=== PATIENT | male | born 1970 | race African-American/Black ===

== ENCOUNTER 2024-05-20 11:39 | Outpatient (AMB) | payer MEDICARE, MEDICAID, SELFPAY ==
--- NOTE | 2024-05-20 12:09 | MHC.PC.OV ---
Vital Signs 05/20/24 12:12 BP 135/63 Blood Pressure Location Lt brachial Position Sitting Pulse 75 Pulse Source Pulse Oximeter Temp 98.8 F Temp Source Temporal Artery Scan Pulse Oximetry (%) 97 Oxygen Delivery Method Room Air Intake Visit Reasons: [facility] STORAGE ARCHITECT- Establish care Intake Note: Patient is here to establish care in the office. Curing Oven Tender Required: No Accompanied by: Spouse Followed by:: and daughter Allergies No Known Allergies Allergy (Verified 05/20/24 12:17) Medication List - Last Reconciled 05/20/24 by ALFREDO Hughes alcohol swabs (Alcohol Wipes) 1 pad topical QID apixaban 5 mg PO BID atorvastatin 80 mg PO BEDTIME bethanechol chloride 25 mg PO TID blood sugar diagnostic (FreeStyle Lite Strips) As directed blood-glucose meter (FreeStyle Lite Meter kit) As directed dextrose 40% (Glucose Gel) 15 grams PO Q15M PRN diaper,brief,adult,disposable As directed glucagon HCl (Glucagon (HCl) Emergency Kit) 1 mg subcut Q20M PRN insulin glargine (Lantus Solostar U-100 Insulin) 14 units subcut BEDTIME insulin lispro (Humalog KwikPen U-200 Insulin) 10 units subcut USEASDIRECTD ketoconazole 2% 1 appl topical 3XW lancets (FreeStyle Lancets) As directed lidocaine 5% 1 patch topical DAILY magnesium hydroxide (Milk of Magnesia) 30 mL PO DAILY PRN melatonin 6 mg (2 x 3 mg) PO BEDTIME 90 days metoprolol tartrate 50 mg PO QID polyethylene glycol 3350 17 grams PO DAILY sennosides (senna) 8.6 mg PO BEDTIME Tobacco use date assessed: 05/20/24 Dental Screening Dental Screen Date: 05/20/24 Did you have a dental visit in the last 12 months?: Yes Did you have a dental problem in the last 6 months where you did not have access to dental care?: No Was dental information given to patient?: Patient has dentist HPI HPI Comments History of Present Illness Details This is a 54-year-old male with a past medical history of multiple CVAs with residual right-sided weakness, aphasia, memory impairment atrial, fibrillation, hypertension, hyperlipidemia and type 2 diabetes presenting to establish care. He is accompanied by his daughter, Susan, and his who goes by Chikis. Medical records are not available to review. They signed a release today. The patient is mostly nonverbal. His daughter says he speaks selectively. His and daughter provide the history. Patient is wheelchair bound. Patient had a CVA in 2019 resulting in residual right-sided weakness, memory impairment, aphasia and dysphagia. He had a G-tube and was slowly advanced, and now he eats a normal diet. They say he eats quickly and they admit he coughs frequently when he eats. No choking events. He was hospitalized again at [facility] in early 2022 for ?multiple small strokes. ? He was then discharged to [facility] where he resided until he moved to [place], [place] in April of this year. He moved here to join his and daughter. They would like him to live at home. They have WIRE SETTER 70 hours per week. His daughter, Susan, serves as WIRE SETTER on Fridays and Saturdays. She manages his medications for the most part. Requests referral to local neurologist. Patient is a nonsmoker. He only drank alcohol occasionally prior to the strokes. He does not drink any alcohol now. They requests referral for home PT/OT in his new living environment. They say that he was diagnosed with atrial fibrillation when he was hospitalized once at [facility]. He saw a package yarns drying machine operator, but he was not following with a package yarns drying machine operator routinely. He was diagnosed with type 2 diabetes when he was hospitalized with a stroke in 2019. His morning blood sugars are between 110 and 130. Postprandial sugars are around 200. He had 1 high reading in the last few months of 300. He had no readings under 80. His meals are cooked at home now. He follows a healthy diet. He takes 10 units of Lantus nightly and 10 units of Humalog 3 times a day and at night though he does not eat a meal before bedtime. They need refills on supplies.Requests endocrinology referral and CGM. ROS: Unable to obtain ROS due to physical impairment. Physical exam: Constitutional: Alert, seated in wheelchair Head: Normocephalic. Neck: Supple, Full range of motion. No lymphadenopathy. Respiratory: Clear to auscultation. Cardiovascular: S1 S2 regular. II/ systolic murmur. Neurologic: Right sided weakness. Nonverbal at appointment. Skin: No rashes Extremities: Warm and well perfused. No clubbing, cyanosis or edema. [facility] Medical History (Updated 05/20/24 @ 21:00 by ALFREDO Hughes) Pure hypercholesterolemia Paroxysmal atrial fibrillation Type 2 diabetes mellitus with vascular disease History of multiple cerebrovascular accidents (CVAs) Aphasia Abnormal posture Dysphagia, oropharyngeal phase Muscle weakness (generalized) Paralysis of vocal cords and larynx, unspecified Dysphasia following cerebral infarction Hemiplegia and hemiparesis following cerebral infarction affecting right non-dominant side Afib Hypertension Metabolic encephalopathy Diabetes type 2, controlled Insomnia Supraventricular tachycardia Cerebral infarction due to unspecified occlusion or stenosis of other cerebral artery Encounter for nasogastric (NG) tube placement Stroke Surgical History (Updated 05/20/24 @ 13:12 by Francoise Virgen CMA) Gastrostomy status Family History (Updated 05/20/24 @ 13:13 by Francoise Virgen CMA) Other No pertinent family history Social History (Updated 05/20/24 @ 13:16 by Francoise Virgen CMA) Household Members: Spouse and Children Housing: House 75 years or older and lives alone: No Alcohol intake: never Patient Tobacco Use Status: Never used Tobacco e-Cigarette/Vaping Use: Never Used Advance Directives Date on File: 05/20/24 service: No Current occupational status: disabled Current occupational exposures/hazards: No Cognitive needs: Yes Hearing needs: No Vision needs: No Questionnaire PHQ-9 Over the last 2 weeks, how often have you been bothered by any of the following problems? 1. Little interest or pleasure in doing things: nearly every day 2. Feeling down, depressed, or hopeless: several days 3. Trouble falling or staying asleep, or sleeping too much: not at all 4. Feeling tired or having little energy: not at all 5. Poor appetite or overeating: more than half the days 6. Feeling bad about yourself - or that you are a failure or have let yourself or your family down: not at all 7. Trouble concentrating on things, such as reading the newspaper or watching television: not at all 8. Moving or speaking so slowly that other people could have noticed. Or the opposite - being so fidgety or restless that you have been moving around a lot more than usual: not at all 9. Thoughts that you would be better off or of hurting yourself in some way: not at all Total score: 6 Depression Screening Interpretation: Positive Depression Screening Done: Yes 82883 - PHQ-9 Billing: Yes Source: Developed by Drs. Bennie Nunez, Torri Cisneros, Les Sanches and colleagues, with an educational tish from [employer]. Thrive Questionnaire Date Thrive assessed: 05/20/24 I am a: Patient What is your living situation today?: I have a steady place to live Within the past 12 months, did the food you bought not last and you didn't have the money to get more?: Sometimes True Within the past 12 months, did you worry whether your food would run out before you got money to buy more?: Sometimes True Do you have trouble paying for medicines?: No Do you have trouble getting transportation to medical appointments?: Yes Do you have trouble paying your heating and electricity bill?: No Do you have trouble taking care of your child, family member or friend?: Yes Do you have trouble with day-to-day activities such as bathing, preparing meals, shopping, managing finances, etc.?: Yes Are you currently unemployed and looking for a job?: Yes Are you interested in more education?: Yes Please select the resources that you would like help with: Food, Transportation, Care for elder or disabled and Daily support Currently or been in a relationship where the following occur: No concerns reported THRIVE Score: 3 AUDIT C Alcohol Use Questionnaire (AUDIT-C) 1. How often do you have a drink containing alcohol?: Never 3. How often do you have six or more drinks on one occasion?: Never Total Score: 0 LIZZIE-7 AMB Questionnaire LIZZIE-7 Date LIZZIE - 7 assessed: 05/20/24 Source: Developed by Drs. Bennie Nunez, Torri Cisneros, Les Sanches and colleagues, with an educational tish from [employer]. LIZZIE-7 Assessment Billing LIZZIE-7 Assessment Tool: pt declined-do not bill Physical exam (Primary Care) Vital Signs: Last Vital Signs Temp 98.8 F 05/20/24 12:12 Pulse 75 05/20/24 12:12 BP 135/63 05/20/24 12:12 Pulse Ox 97 05/20/24 12:12 Oxygen Delivery Method Room Air 05/20/24 12:12 Tobacco/Smoking Status: Tobacco use Status Tobacco use date assessed 05/20/24 05/20/24 12:58 Patient Tobacco Use Status Never used Tobacco 05/20/24 13:16 e-Cigarette/Vaping Use Never Used 05/20/24 13:16 PHQ-9: PHQ-9 Score PHQ-9: Total score 6 05/20/24 16:39 Depression Screening Interpretation: Positive Thrive Assessment: Date of Thrive Assessment Date Thrive assessed 05/20/24 05/20/24 12:59 Currently or been in a relationship where the following occur: No concerns reported Assessment and Plan Assessment & Plan (1) History of multiple cerebrovascular accidents (CVAs): Code(s): Z86.73 - Personal history of transient ischemic attack (TIA), and cerebral infarction without residual deficits (2) Type 2 diabetes mellitus with vascular disease: Code(s): E11.59 - Type 2 diabetes mellitus with other circulatory complications (3) Paroxysmal atrial fibrillation: Code(s): I48.0 - Paroxysmal atrial fibrillation (4) Hemiplegia and hemiparesis following cerebral infarction affecting right non-dominant side: Code(s): I69.353 - Hemiplegia and hemiparesis following cerebral infarction affecting right non-dominant side (5) Pure hypercholesterolemia: Code(s): E78.00 - Pure hypercholesterolemia, unspecified (6) Hypertension: Code(s): I10 - Essential (primary) hypertension Qualifiers: Hypertension type: primary hypertension Qualified Code(s): I10 - Essential (primary) hypertension (7) Afib: Code(s): I48.91 - Unspecified atrial fibrillation Qualifiers: Atrial fibrillation type: unspecified Qualified Code(s): I48.91 - Unspecified atrial fibrillation (8) Dysphagia, oropharyngeal phase: Code(s): R13.12 - Dysphagia, oropharyngeal phase Plan The patient will have labwork done today. Referred to [facility] for home PT/OT. Patient is homebound/wheelchair bound secondary to hemiparesis. Referrals placed for endocrinology and neurology. Will need to review transfer records once available regarding cardiology evaluation for atrial fibrillation. D/C night time dose of Humalog and continue it TID before meals. Continue all other medications. Ordered CGM. Requested modified swallow study. Follow up in 3 months, Orders: Orders TSH reflex Free T4 Today E11.9 - Type 2 diabetes mellitus without complications, E66.9 - Obesity, unspecified, I63.9 - Cerebral infarction, unspecified Lipid Panel Today E11.9 - Type 2 diabetes mellitus without complications, I63.9 - Cerebral infarction, unspecified Hemoglobin A1c Today E11.9 - Type 2 diabetes mellitus without complications, I63.9 - Cerebral infarction, unspecified Comprehensive Met. Panel Today E11.9 - Type 2 diabetes mellitus without complications, I63.9 - Cerebral infarction, unspecified [place] barium swallow modified Today R13.12 - Dysphagia, oropharyngeal phase, Z86.73 - Personal history of transient ischemic attack (TIA), and cerebral infarction without residual deficits Complete Blood Count no Diff Today E11.9 - Type 2 diabetes mellitus without complications, I63.9 - Cerebral infarction, unspecified Referrals Neurology Referral Z86.73 - Personal history of transient ischemic attack (TIA), and cerebral infarction without residual deficits Endocrinology Referral E11.59 - Type 2 diabetes mellitus with other circulatory complications [facility] Referral I69.90 - Unspecified sequelae of unspecified cerebrovascular disease, R47.01 - Aphasia, R53.1 - Weakness, R53.81 - Other malaise Medications: New lidocaine 5% leave on most painful area for up to 12 hrs 1 patch topical DAILY 30 ea 11RF back pain melatonin 6 mg (2 x 3 mg) PO BEDTIME 180 tabs 3RF 90 days blood-glucose meter,continuous (FreeStyle Reanna 3 [place]) As directed 1 ea 0RF blood-glucose sensor (FreeStyle Reanna 3 Sensor device) As directed 2 ea 11RF blood sugar diagnostic (FreeStyle Lite Strips) As directed 100 ea 11RF blood-glucose meter (FreeStyle Lite Meter kit) As directed 1 ea 0RF lancets (FreeStyle Lancets) As directed 100 ea 11RF alcohol swabs (Alcohol Wipes) 1 pad topical QID 200 ea 11RF diaper,brief,adult,disposable As directed 120 ea 11RF Coding Level of Care Code New Pt Level 5 (30053) Complex EM visit Add On G2211 Diagnoses History of multiple cerebrovascular accidents (CVAs) Z86.73 Type 2 diabetes mellitus with vascular disease E11.59 Paroxysmal atrial fibrillation I48.0 Hemiplegia and hemiparesis following cerebral infarction affecting right non-dominant side I69.353 Pure hypercholesterolemia E78.00 Primary hypertension I10 Hypertension type: primary hypertension Atrial fibrillation, unspecified type I48.91 Atrial fibrillation type: unspecified Dysphagia, oropharyngeal phase R13.12 Time Spent (min) 60 Comment Updating chart, placing orders, discussing medical history and treatment plan
[2024-05-20 12:12] VITALS: BP 135/63; PULSE 75; TEMP 37.1; O2SAT 97
== END 2024-05-20 13:03 | disposition home or self-care (01) ==
PROVIDERS: PCP Physician Assistant Medical; Visit Provider Physician Assistant Medical
DX: E11.59 Type 2 diabetes mellitus with other circulatory complications (principal); I48.0 Paroxysmal atrial fibrillation; I69.353 Hemiplegia and hemiparesis following cerebral infarction affecting right non-dominant side; Z86.73 Personal history of transient ischemic attack (TIA), and cerebral infarction without residual deficits; E78.00 Pure hypercholesterolemia, unspecified; I10 Essential (primary) hypertension; R13.12 Dysphagia, oropharyngeal phase
CPT/HCPCS: 99205

== ENCOUNTER 2024-05-20 13:18 | Outpatient (REF) | payer MEDICARE, MEDICAID, SELFPAY ==
[2024-05-20 14:31] LABS: Hematocrit 38.3 % (42.0-52.0); Mean Corpuscular HGB Conc 31.3 g/dl (31.0-36.0); Mean Corpuscular Hemoglobin 22.8 pg (27.0-33.0); Mean Corpuscular Volume 72.7 fL (80.0-98.0); Mean Platelet Volume 11.5 fL (9.4-12.4); Platelet Count 230 X10*3/uL (160-400); Red Blood Count 5.27 X10*6/uL (4.60-5.80); Red Cell Distribution Width 15.7 % (11.0-16.0); White Blood Count 5.5 X10*3/uL (4.8-10.8)
[2024-05-20 14:38] LABS: Estimated Average Glucose 194 mg/dL; Hemoglobin A1c % 8.4 % (<6.0)
[2024-05-20 15:07] LABS: Alanine Aminotransferase 14 U/L (0-40); Albumin Level 3.7 g/dL (3.5-5.0); Alkaline Phosphatase 75 U/L (39-117); Anion Gap 11 (12-20); Aspartate Amino Transferase 16 U/L (5-37); Bilirubin Total 0.5 mg/dL (0.0-1.0); Blood Urea Nitrogen 12 mg/dL (9-16); Calcium 9.5 mg/dL (8.4-10.2); Carbon Dioxide 23 mmol/L (22-29); Chloride 107 mmol/L (96-108); Cholesterol 121 mg/dL (<200); Estimated Glomerular Filt Rate > 60; Glucose Random 259 mg/dL (60-115); HDL Cholesterol 39 mg/dL (>40); LDL Cholesterol Calculated 69 mg/dL (<100); Potassium 4.1 mmol/L (3.3-5.1); Sodium 137 mmol/L (135-145); Total Protein 7.2 g/dL (6.5-8.0); Triglycerides 68 mg/dL (<150)
[2024-05-20 15:09] LABS: TSH reflex Free T4 0.86 uIU/mL (0.32-4.0)
== END 2024-05-20 13:19 | disposition home or self-care (01) ==
LOC: HO.WFDLDS 13:18
PROVIDERS: Visit Provider Physician Assistant Medical
DX: I63.9 Cerebral infarction, unspecified (principal); E66.9 Obesity, unspecified; E11.9 Type 2 diabetes mellitus without complications
CPT/HCPCS: 36415; 80053; 80061; 83036; 84443; 85027

== ENCOUNTER 2024-05-27 11:55 | Outpatient (AMB) | payer MEDICARE, MEDICAID, SELFPAY ==
--- NOTE | 2024-05-27 11:23 | A.OFFPC_ITS ---
Intake Visit Reasons: Discuss labs Allergies No Known Allergies Allergy (Verified 05/20/24 12:17) Tobacco use date assessed: 05/20/24 Dental Screening Dental Screen Date: 05/20/24 HPI HPI Comments History of Present Illness Details This is a 54-year-old male with a past medical history of multiple CVAs with residual right-sided weakness, aphasia, memory impairment atrial, fibrillation, hypertension, hyperlipidemia and type 2 diabetes presenting to review labs. His , Chikis is on the phone as well as his daughter, Susan, who is his HOLLOW TILE PARTITION ERECTOR. The patient is mostly nonverbal. His hemoglobin a1c is 8.4%. Susan provided fasting AM readings this week. She says they have been lower: 91, 71 (no hypoglycemia symptoms), 90, 94. Did not take Lantus last night, and this morning it was 129. His readings before bed are between 130-170 this week. He is not allowing her to check mealtime readings. CGM ordered, but they say the pharmacy never dispensed it. His meals are cooked at home now. He follows a healthy diet. He takes 14 units of Lantus nightly and 10 units of Humalog 3 times a day with meals (discontinued the nightly dose after our last visit as directed). Labs also showed mild microcytic anemia. No bleeding, bloody stools. No history of this. They say he does get sources of iron in his diet. LDL 69 with a goal of less than 70. ROS: Unable to obtain ROS due to physical impairment. PE: Deferred due to phone exam. [facility] Medical History (Updated 05/27/24 @ 12:33 by ALFREDO Hughes) Mild anemia Pure hypercholesterolemia Paroxysmal atrial fibrillation Type 2 diabetes mellitus with vascular disease History of multiple cerebrovascular accidents (CVAs) Aphasia Abnormal posture Dysphagia, oropharyngeal phase Muscle weakness (generalized) Paralysis of vocal cords and larynx, unspecified Dysphasia following cerebral infarction Hemiplegia and hemiparesis following cerebral infarction affecting right non- dominant side Afib Hypertension Metabolic encephalopathy Diabetes type 2, controlled Insomnia Supraventricular tachycardia Cerebral infarction due to unspecified occlusion or stenosis of other cerebral artery Encounter for nasogastric (NG) tube placement Stroke Surgical History (Updated 05/20/24 @ 13:12 by Francoise Virgen CMA) Gastrostomy status Family History (Updated 05/20/24 @ 13:13 by Francoise Virgen CMA) Other No pertinent family history Social History (Updated 05/20/24 @ 13:16 by Francoise Virgen CMA) Household Members: Spouse and Children Housing: House 75 years or older and lives alone: No Alcohol intake: never Patient Tobacco Use Status: Never used Tobacco e-Cigarette/Vaping Use: Never Used Advance Directives Date on File: 05/20/24 service: No Current occupational status: disabled Current occupational exposures/hazards: No Cognitive needs: Yes Hearing needs: No Vision needs: No Questionnaire Thrive Questionnaire Date Thrive assessed: 05/20/24 LIZZIE-7 AMB Questionnaire LIZZIE-7 Date LIZZIE - 7 assessed: 05/20/24 Source: Developed by Drs. Bennie Nunez, Torri Cisneros, Les Sanches and colleagues, with an educational tish from [employer]. Physical exam (Primary Care) Tobacco/Smoking Status: Tobacco use Status Tobacco use date assessed 05/20/24 05/27/24 11:23 Patient Tobacco Use Status Never used Tobacco 05/27/24 11:23 e-Cigarette/Vaping Use Never Used 05/27/24 11:23 Thrive Assessment: Date of Thrive Assessment Date Thrive assessed 05/20/24 05/27/24 11:23 Assessment and Plan Assessment & Plan (1) Type 2 diabetes mellitus with vascular disease: Code(s): E11.59 - Type 2 diabetes mellitus with other circulatory complications (2) Hypertension: Code(s): I10 - Essential (primary) hypertension Qualifiers: Hypertension type: primary hypertension Qualified Code(s): I10 - Essential (primary) hypertension (3) Pure hypercholesterolemia: Code(s): E78.00 - Pure hypercholesterolemia, unspecified (4) Mild anemia: Code(s): D64.9 - Anemia, unspecified Plan Send Dexcom G7. Advised them to call if not dispensed from pharmacy. Insurance should cover since he is on insulin. Diabetes is currently uncontrolled by a1c. Would like to review data from mealtimes to see if this is when sugars are going high since AM and nightly readings are good. A1C also reflects last 3 months so it may be that he is better controlled now since moving home and having meals prepared there. Will consider adding glp1 once CGM data is reviewed. Sugars have been lower in the mornings. Decrease Lantus to 12 units nightly. Reviewed tx of glucose <70 with them. LDL at goal. Continue current medication regimen for HLD. Return in 1 month for labs for anemia. Increase iron rich foods. Orders: Orders Ferritin Today D64.9 - Anemia, unspecified Vitamin B12 and Folate Today D64.9 - Anemia, unspecified Complete Blood Count Auto Diff 1 Month D64.9 - Anemia, unspecified IRON PROFILE Today D64.9 - Anemia, unspecified Medications: New insulin glargine (Lantus Solostar U-100 Insulin) 12 units (0.12 mL) subcut BEDTIME 4 mL 11RF blood-glucose meter,continuous (Dexcom G7 [employer] Real [employer] Director) As directed to monitor glucose for type 2 diabetes 1 ea 0RF blood-glucose sensor (Dexcom G7 Sensor device) apply 1 sensor every 10 days as directed to monitor blood glucose for type 2 diabetes 3 ea 11RF Discontinued blood-glucose meter,continuous (FreeStyle Reanna 3 [place]) Discontinued Reason: Doctor's Order As directed 1 ea 0RF blood-glucose sensor (FreeStyle Reanna 3 Sensor device) Discontinued Reason: Doctor's Order As directed 2 ea 11RF Coding Level of Care Code Tele Est Pt Level 3 (02037) Complex EM visit Add On G2211 Diagnoses Type 2 diabetes mellitus with vascular disease E11.59 Primary hypertension I10 Hypertension type: primary hypertension Pure hypercholesterolemia E78.00 Mild anemia D64.9
== END 2024-05-27 16:42 | disposition home or self-care (01) ==
LOC: HO.HMGFM 11:55
PROVIDERS: PCP Physician Assistant Medical; Visit Provider Physician Assistant Medical
DX: E11.59 Type 2 diabetes mellitus with other circulatory complications (principal); I10 Essential (primary) hypertension; E78.00 Pure hypercholesterolemia, unspecified; D64.9 Anemia, unspecified
CPT/HCPCS: 99214

== ENCOUNTER 2024-06-15 12:57 | Outpatient (AMB) | payer MEDICAID, SELFPAY ==
--- NOTE | 2024-06-15 13:13 | A.OFFVIS_ITS ---
Vital Signs 06/15/24 13:20 Height 5 ft 5 in BMI Reason not done Patient refused/unable BP 128/82 Blood Pressure Location Rt brachial Position Sitting Pulse 59 Pulse Source Pulse Oximeter Intake Visit Reasons: DM/LVM Intake Note: New Patient presents today to establish treatment for Type Diabetes Mellitus: Last Diabetic eye exam was on: DUE Last Podiatry exam was on: Does not see a Plant Operator Helper Most recent HbA1c: 8.4%, 05/10/2024 Random Glucose- 185mg/dL, Today Brush Or Broom Cutter Required: No Accompanied by: Daughter Allergies No Known Allergies Allergy (Verified 06/15/24 13:21) HPI Comments Details: [54] YO [M] who is seen in consultation for T2DM at the request of PCP. Most of history obtained by daughter, Patient is mainly non verbal s/p cva with dysphagia, hemiplegia and hemiparesis. He is in a wheel chair. Initially diagnosed with T2DM in [2020]. Was initially started on treatment with [oral agents not certain]. Has been on insulin at least 3 years. Current regimen [Lantus 10 units (recently decreased from 14 units]. Humalog 10 units tid Checks sugars [2] times per day. am running 99-177, one reading 146 evening 1.5 hours after eating 128-201 Reports low sugars [71 was the lowest 3 weeks ago]. Treats lows with [oj 1/2 glass]. [Checks] sugar after to ensure it is rising. [Treats] according to rule of 15's. Most recent A1C [8.4% on 05/20] Per daughter in the past he has run 8.5%. Family history of T2DM in [negative mom, dad]. Has eyes checked yearly, last eye exam [1 year ago], needs referral, [not certain] retinopathy. [+ ] neuropathy, does not see podiatry. [Denies] nephropathy, on [KASIA/ARB]. UAC [] as measured on []. [Has] HLD, on [statin]. He is finding difficult to take Atorvastin despite being crushed and added to applesauce and is missing 5 doses per week. [Denies] CAD. Had a stroke 4 years ago. Has been wheel chair bound since stroke, speech impaired, right arm lost mobility. Gets PT at home. OT at home. Denies alcohol/tobacco use Diet: [oatmeal with fruit or egg sandwich, lunch sandwich or veg/protein (chicken or salmon) supper rice/veg/fish No added sugar small quantity juice ] Weight: [Has been able to increase his weight since leaving senior care two months ago ] [none] diabetes education. Daughter declines nutrition visit. 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 Afib Hypertension Metabolic encephalopathy Diabetes type 2, controlled Insomnia Supraventricular tachycardia Cerebral infarction due to unspecified occlusion or stenosis of other cerebral artery Encounter for nasogastric (NG) tube placement Stroke Surgical History (Updated 05/20/24 @ 13:12 by Francoise Virgen CMA) Gastrostomy status Family History (Updated 05/20/24 @ 13:13 by Francoise Virgen CMA) Other No pertinent family history Social History (Updated 05/20/24 @ 13:16 by Francoise Virgen CMA) Household Members: Spouse and Children Housing: House 75 years or older and lives alone: No Alcohol intake: never Patient Tobacco Use Status: Never used Tobacco e-Cigarette/Vaping Use: Never Used [place] Directives Date on File: 05/20/24 service: No Current occupational status: disabled Current occupational exposures/hazards: No Cognitive needs: Yes Hearing needs: No Vision needs: No Physical Exam Vital Signs: Last Vital Signs Pulse 43 L 06/15/24 13:20 BP 128/82 06/15/24 13:20 Absence of Cushingoid features. Absence of acromegalic features. Neck exam reveals nl size thyroid about 15 gms. No thyroid nodules palpable. No carotid bruits present. Lungs CTA. Heart S1 S2, Reg R/R. No M/R/ G. Skin exam reveals absence of vitiligo or acanthosis nigricans. Abdominal exam reveals Soft NT/ND with NA BS. No organomegaly present. Const General: no acute distress Nutritional Appearance: average body habitus Orientation/consciousness: oriented to person Limitations: physical limitations and wheelchair HEENT Other: dysphagia Neck Other: . Neck: Yes normal visual inspection Thyroid: Thyroid normal Lymphatic: no lymphadenopathy noted Resp Effort & Inspection: normal respiratory effort Auscultation: clear to auscultation bilaterally Cardio Jugular venous distension: no JVD Rate: regular rate Rhythm: regular rhythm Heart sounds: S1 normal heart sound present and S2 normal heart sound present Neuro Other: hemiparesis General: oriented to person Extrem Other: Visual exam of foot performed. No ulcerations or open lesions. No onchomycosis, no callouses.Pulses 2 + distally Sensation absentt to monofilament exam. Vibratory sensation sensed is diminshed with 128 Hz tuning fork Results Reviewed Results Reviewed: Laboratory Last Values Glucose (Clinic) 185 mg/dL (60-115) H 06/15/24 13:23 Laboratory Tests 05/20/24 13:19 Plt Count 230 Potassium 4.1 Creatinine 0.89 Estimated GFR > 60 Random Glucose 259 H Hemoglobin A1c % 8.4 H Calcium 9.5 AST 16 ALT 14 Triglycerides 68 Cholesterol 121 LDL Cholesterol, Calc 69 HDL Cholesterol 39 L TSH 0.86 Assessment & Plan Assessment & Plan (1) Type 2 diabetes mellitus with vascular disease: Code(s): E11.59 - Type 2 diabetes mellitus with other circulatory complications Category: Medical Plan: Adult onset DM. Will check gada and insulin antibodies to confirm type 2. He is wheelchair bound, dysphagia and needs maximum assistance for wheelchair to bed transfers. Patient had high risk for suffering fall from hypoglycemia and on multiple daily doses of insulin. Freestyle reanna 3 monitor ordered so so that caregiver/family can monitor glucose at all times. PA to be intitiated for this and oral statin as he is not tolerating po crushed and eaten with apple sauce. He will return to clinic with CDE once he receives sensor for training. Can also consider CeQur Simplicity insulin patch to aide caregivers in administering insulin as he is a maximum assist with his ADL's. Orders: Orders Islet Cell Antibody Scrn/Titer Today E11.59 - Type 2 diabetes mellitus with other circulatory complications Microalbumin, Random (w Creat) Today E11.59 - Type 2 diabetes mellitus with other circulatory complications Creatinine Urine Today E11.59 - Type 2 diabetes mellitus with other circulatory complications C Peptide Today E11.59 - Type 2 diabetes mellitus with other circulatory complications Glutamic acid decarboxylase Ab Today E11.59 - Type 2 diabetes mellitus with other circulatory complications Referrals Ophthalmology Referral E11.59 - Type 2 diabetes mellitus with other circulatory complications Podiatry Referral E11.59 - Type 2 diabetes mellitus with other circulatory complications Medications: New blood-glucose meter,continuous (FreeStyle Reanna 3 [place]) As directed 1 ea 1RF blood-glucose sensor (FreeStyle Reanna 3 Sensor device) As directed 2 ea 11RF blood-glucose meter,continuous (FreeStyle Reanna 3 [place]) As directed 1 ea 0RF blood-glucose sensor (FreeStyle Reanna 3 Sensor device) As directed 2 ea 11RF atorvastatin (AtorvaliQ) administer on an empty stomach, at least 1 hour before or 2 hours after food/meal(s) 40 mg (10 mL) PO DAILY 30 days 300 mL 11RF Changed From blood sugar diagnostic (FreeStyle Lite Strips) As directed 100 ea 11RF To blood sugar diagnostic (FreeStyle Lite Strips) As directed tid 100 ea 11RF Refilled lancets (FreeStyle Lancets) As directed 100 ea 11RF Discontinued blood-glucose sensor (Dexcom G7 Sensor device) Discontinued Reason: Doctor's Order apply 1 sensor every 10 days as directed to monitor blood glucose for type 2 diabetes 3 ea 11RF blood-glucose meter,continuous (Dexcom G7 Chain Sales Representative) Discontinued Reason: Doctor's Order As directed to monitor glucose for type 2 diabetes 1 ea 0RF Coding Level of Care Code New Pt Level 5 (82339) Complex EM visit Add On G2211 Diagnoses Type 2 diabetes mellitus with vascular disease E11.59
[2024-06-15 13:20] VITALS: BP 128/82; PULSE 59
[2024-06-15 13:27] LABS: Glucose, Whole Blood 185 mg/dL (60-115)
== END 2024-06-15 14:02 | disposition home or self-care (01) ==
PROVIDERS: PCP Physician Assistant Medical; Visit Provider Nurse Practitioner Adult Health
DX: E11.59 Type 2 diabetes mellitus with other circulatory complications (principal)
CPT/HCPCS: 99205

== ENCOUNTER → 2024-06-15 12:57 | Outpatient (BNVA) | payer MEDICARE, MEDICAID, SELFPAY | PROVIDERS: PCP Physician Assistant Medical; Visit Provider Nurse Practitioner Adult Health | DX: E11.59 Type 2 diabetes mellitus with other circulatory complications (principal) | CPT/HCPCS: 82947; 99212 ==

== ENCOUNTER 2024-08-26 09:31 | Outpatient (AMB) | payer MEDICAID, SELFPAY ==
--- NOTE | 2024-08-26 08:53 | A.OFFVIS_ITS ---
Vital Signs 08/26/24 09:47 Height 5 ft 5 in BMI Reason not done Patient refused/unable BP 120/78 Blood Pressure Location Rt brachial Position Sitting Pulse 59 Pulse Source Pulse Oximeter Intake Visit Reasons: DM/CONFIRMED Intake Note: Patient presents today for a follow-up on Type 2 Diabetes Mellitus: Last Diabetic eye exam was on: DUE Last Podiatry exam was on: Does not see a Manufacturing Support Engineer Most recent HbA1c: 8.6%, 08/26/2024 Random Glucose-292 mg/dL, Today Rn Wellness Required: No Accompanied by: Daughter Business Process Engineer Allergies No Known Allergies Allergy (Verified 09/08/24 12:04) HPI Comments Details: 54 YO male who is seen in follow-up for T2DM. He was seen as an initial consult 06/15/2024 at which time a [email or web address] Reanna 3, Podiatry and Ophthalmology consults were ordered and we discussed potentially going on CeQur which is a 4 day insulin patch. His daughter is primarily responsible for administering insulin and this would ease care burden. He was also asked to have labs done to determine whether he is type 1 versus type 2 which have not yet been completed but will be done today. If he has in fact type 2, pioglitazone low dose could be added to reduce the risk of stroke. Most of history obtained by daughter, Patient is mainly non verbal s/p cva with dysphagia, hemiplegia and hemiparesis. He is in a wheel chair. Hemoglobin A1c 08/26/2024 %, 05/20/2024 8.4%. Initially diagnosed with T2DM in [2020]. Was initially started on treatment with oral agents, daughter is not certain of which medications.Has been on insulin since approximately 2020. Current regimen Lantus 10 units Humalog 10 units tid Checks sugars [2] times per day. Glucose readings in the morning 120-180. Later in the day 180 to 200+ Treats lows with [oj 1/2 glass]. [Checks] sugar after to ensure it is rising. [Treats] according to rule of 15's. Family history of T2DM: None in parents Has eyes checked yearly, last eye exam [1 year ago], [not certain] retinopathy. Has neuropathy, does not see podiatry. No nephropathy: No micro albumin in EHR, eGFR>60 05/2024 Has HLD, on liquid statin as he was finding it difficult to take Atorvastin pills despite being crushed and added to applesauce and is missing 5 doses per week. Denies CAD. Had a stroke 4 years ago. Has been wheel chair bound since stroke, speech impaired, right arm lost mobility. Gets PT at home. OT at home. Denies alcohol/tobacco use Diet: oatmeal with fruit or egg sandwich, lunch sandwich or veg/protein (chicken or salmon) supper rice/veg/fish No added sugar small quantity juice Weight: Has been able to increase his weight since leaving alf two months ago. No diabetes education in the past. [facility] Medical History Mild anemia Pure hypercholesterolemia Paroxysmal atrial fibrillation Type 2 diabetes mellitus with vascular disease History of multiple cerebrovascular accidents (CVAs) Aphasia Abnormal posture Dysphagia, oropharyngeal phase Muscle weakness (generalized) Paralysis of vocal cords and larynx, unspecified Dysphasia following cerebral infarction Hemiplegia and hemiparesis following cerebral infarction affecting right non- dominant side Afib Hypertension Metabolic encephalopathy Diabetes type 2, controlled Insomnia Supraventricular tachycardia Cerebral infarction due to unspecified occlusion or stenosis of other cerebral artery Encounter for nasogastric (NG) tube placement Stroke Surgical History Gastrostomy status Family History Other No pertinent family history Social History Household Members: Spouse and Children Housing: House Alcohol intake: never Patient Tobacco Use Status: Never used Tobacco e-Cigarette/Vaping Use: Never Used [place] Directives Date on File: 05/20/24 service: No Current occupational status: disabled Current occupational exposures/hazards: No Cognitive needs: Yes Hearing needs: No Vision needs: No Physical Exam Vital Signs: Last Vital Signs Pulse 59 08/26/24 09:47 BP 120/78 08/26/24 09:47 Const Other: Nonverbal, wheelchair bound. Hemiparesis. Absence of Cushingoid features. Absence of acromegalic features. Neck exam reveals nl size thyroid about 15 gms. No thyroid nodules palpable. Heart S1 S2, Reg R/R. No M/R G. Skin exam reveals absence of vitiligo or acanthosis nigricans. Visual exam of foot performed. No ulcerations or open lesions. No inter digit maceration or fissuring. No onychomycosis, no callouses. Sensation intact to monofilament exam. Vibratory sensation is normal with 128 Hz tuning fork. Results AMB Hemoglobin A1c AMB Hemoglobin A1c 8.6 % Last Edit by EMERSON Brand on 08/26/24 10:01 Results Reviewed Results Reviewed: Laboratory Last Values Glucose (Clinic) 292 mg/dL (60-115) H 08/26/24 09:50 Hgb A1c (Clinic) 8.6 % (4.0-6.0) H 08/26/24 10:00 Assessment & Plan Assessment & Plan (1) Type 2 diabetes mellitus with vascular disease: Code(s): E11.59 - Type 2 diabetes mellitus with other circulatory complications Category: Medical Plan: 54-year-old nonverbal in a wheelchair diabetic with failure to achieve targeted A1c. We will check louisa antibody/C-peptide/insulin antibodies to determine if type 1 versus type 2 as it may be appropriate to start pioglitazone on this patient for stroke risk reduction. As he is nonverbal wheelchair-bound and requiring full assistance from his daughter will prescribe CeQur insulin patch pump. Orders: Orders AMB Hemoglobin A1c 08/26/24 E11.59 - Type 2 diabetes mellitus with other circulatory complications Referrals Diabetes Education Referral E11.59 - Type 2 diabetes mellitus with other circulatory complications Coding Level of Care Code Est Pt Level 4 (15038) Complex EM visit Add On G2211 Diagnoses Type 2 diabetes mellitus with vascular disease E11.59 Time Spent (min) 40 Comment Time spent reviewing labs/provider notes, face to face, chart doc
[2024-08-26 09:47] VITALS: BP 120/78; PULSE 59
[2024-08-26 09:54] LABS: Glucose, Whole Blood 292 mg/dL (60-115)
== END 2024-08-26 10:53 | disposition home or self-care (01) ==
PROVIDERS: PCP Physician Assistant Medical; Visit Provider Nurse Practitioner Adult Health
DX: E11.59 Type 2 diabetes mellitus with other circulatory complications (principal)
CPT/HCPCS: 99214

== ENCOUNTER 2024-09-08 11:29 | Outpatient (AMB) | payer MEDICAID, SELFPAY ==
--- NOTE | 2024-09-08 12:03 | A.OFFPC_ITS ---
Vital Signs 09/08/24 12:11 09/08/24 12:21 BMI Reason not done Patient refused/unable BP 112/70 Blood Pressure Location Lt brachial Position Sitting Pulse 51 64 Pulse Source Pulse Oximeter Pulse Oximetry (%) 100 Oxygen Delivery Method Room Air Intake Visit Reasons: FOLLOW UP DIABETES Intake Note: Follow up diabetes Allergies No Known Allergies Allergy (Verified 09/08/24 12:04) Tobacco use date assessed: 05/20/24 Dental Screening Dental Screen Date: 05/20/24 HPI HPI Comments History of Present Illness Details This is a 54-year-old male with a past medical history of multiple CVAs with residual right-sided weakness, aphasia, memory impairment atrial, fibrillation, hypertension, hyperlipidemia and type 2 diabetes presenting for follow up. He is accompanied by his daughter, Susan. The patient is mostly nonverbal. Patient is wheelchair bound. Patient had a CVA in 2019 resulting in residual right-sided weakness, memory impairment, aphasia and dysphagia. He had a G-tube and was slowly advanced, and now he eats a normal diet, but they report coughing. Swallow study is scheduled tomorow. No choking events. He was hospitalized again at [facility] in early 2022 for ?multiple small strokes. ? He was then discharged to [facility] where he resided until he moved to [place], [place] in April 2024 to join his and daughter. Susan is his WELDER EXPERIMENTAL, and she manages his medications. Patient is a nonsmoker. He only drank alcohol occasionally prior to the strokes. He does not drink any alcohol now. They say that he was diagnosed with atrial fibrillation when he was hospitalized once at [facility] [place] [place]. He saw a inspector motor vehicles, but he was not following with a inspector motor vehicles routinely. I still have not received his medical records. Patient currently on Eliquis, aspirin, atorvastatin, metoprolol. LDL 69 with a goal of less than 70. He was diagnosed with type 2 diabetes when he was hospitalized with a stroke in 2019. Patient is now seeing Helen Chauhan at [facility]. Patient still has not been able to obtain CGM. They did not hear about scheduling with an eye doctor or applied biology professor so I placed new referrals today. Hemoglobin A1c 8.6% 08/26/2024. ROS: Unable to obtain ROS due to cognitive impairment. Physical exam: Constitutional: Alert, seated in wheelchair Head: Normocephalic. Neck: Supple, Full range of motion. No lymphadenopathy. Respiratory: Clear to auscultation. Cardiovascular: S1 S2 regular. II/ systolic murmur. Neurologic: Right sided weakness. Nonverbal at appointment. Skin: No rashes Extremities: Warm and well perfused. No clubbing, cyanosis or edema. [facility] Medical History Mild anemia Pure hypercholesterolemia Paroxysmal atrial fibrillation Type 2 diabetes mellitus with vascular disease History of multiple cerebrovascular accidents (CVAs) Aphasia Abnormal posture Dysphagia, oropharyngeal phase Muscle weakness (generalized) Paralysis of vocal cords and larynx, unspecified Dysphasia following cerebral infarction Hemiplegia and hemiparesis following cerebral infarction affecting right non- dominant side Afib Hypertension Metabolic encephalopathy Diabetes type 2, controlled Insomnia Supraventricular tachycardia Cerebral infarction due to unspecified occlusion or stenosis of other cerebral artery Encounter for nasogastric (NG) tube placement Stroke Surgical History Gastrostomy status Family History Other No pertinent family history Social History Household Members: Spouse and Children Housing: House Alcohol intake: never Patient Tobacco Use Status: Never used Tobacco e-Cigarette/Vaping Use: Never Used [place] Directives Date on File: 05/20/24 service: No Current occupational status: disabled Current occupational exposures/hazards: No Cognitive needs: Yes Hearing needs: No Vision needs: No Questionnaire Thrive Questionnaire Date Thrive assessed: 09/01/24 I am a: Parent/Caregiver What is your living situation today?: I have a steady place to live Within the past 12 months, did the food you bought not last and you didn't have the money to get more?: Sometimes True Within the past 12 months, did you worry whether your food would run out before you got money to buy more?: Sometimes True Do you have trouble paying for medicines?: Yes Do you have trouble getting transportation to medical appointments?: No Do you have trouble paying your heating and electricity bill?: Yes Do you have trouble taking care of your child, family member or friend?: No Do you have trouble with day-to-day activities such as bathing, preparing meals, shopping, managing finances, etc.?: Yes Are you currently unemployed and looking for a job?: I choose not to answer this question Are you interested in more education?: No Please select the resources that you would like help with: Food Currently or been in a relationship where the following occur: No concerns reported THRIVE Score: 3 AUDIT C Alcohol Use Questionnaire (AUDIT-C) 1. How often do you have a drink containing alcohol?: Never Total Score: 0 LIZZIE-7 AMB Questionnaire LIZZIE-7 Date LIZZIE - 7 assessed: 05/20/24 Feeling nervous, anxious, or on edge: 0 = Not at all Not being able to stop or control worryin = Not at all Worrying too much about different things: 0 = Not at all Trouble relaxin = Not at all Being so restless that it is hard to sit still: 0 = Not at all Becoming easily annoyed or irritable: 0 = Not at all Feeling afraid as if something awful might happen: 0 = Not at all Total LIZZIE-7 score (0-4 normal; 5-9 mild; 10-14 moderate; 15-21 severe): 0 Source: Developed by Drs. Bennie Nunez, Torri Cisneros, Les Sanches and colleagues, with an educational tish from [employer]. Physical exam (Primary Care) Vital Signs: Last Vital Signs Pulse 64 09/08/24 12:21 BP 112/70 09/08/24 12:11 Pulse Ox 100 09/08/24 12:11 Oxygen Delivery Method Room Air 09/08/24 12:11 Tobacco/Smoking Status: Tobacco use Status Tobacco use date assessed 05/20/24 09/08/24 12:11 Patient Tobacco Use Status Never used Tobacco 09/08/24 12:11 e-Cigarette/Vaping Use Never Used 09/08/24 12:11 Thrive Assessment: Date of Thrive Assessment Date Thrive assessed 09/01/24 09/08/24 12:11 Currently or been in a relationship where the following occur: No concerns reported Coding Level of Care Code Est Pt Level 4 (86669) Complex EM visit Add On G2211 Diagnoses Hemiplegia and hemiparesis following cerebral infarction affecting right non- dominant side I69.353 Pure hypercholesterolemia E78.00 Primary hypertension I10 Hypertension type: primary hypertension Paroxysmal atrial fibrillation I48.0 Type 2 diabetes mellitus with vascular disease E11.59 History of multiple cerebrovascular accidents (CVAs) Z86.73 Assessment & Plan Assessment & Plan (1) Hemiplegia and hemiparesis following cerebral infarction affecting right non-dominant side: Code(s): I69.353 - Hemiplegia and hemiparesis following cerebral infarction affecting right non-dominant side Category: Medical (2) Pure hypercholesterolemia: Code(s): E78.00 - Pure hypercholesterolemia, unspecified Category: Medical (3) Hypertension: Code(s): I10 - Essential (primary) hypertension Category: Medical Qualifiers: Hypertension type: primary hypertension Qualified Code(s): I10 - Essential (primary) hypertension (4) Paroxysmal atrial fibrillation: Code(s): I48.0 - Paroxysmal atrial fibrillation Category: Medical (5) Type 2 diabetes mellitus with vascular disease: Code(s): E11.59 - Type 2 diabetes mellitus with other circulatory complications Category: Medical (6) History of multiple cerebrovascular accidents (CVAs): Code(s): Z86.73 - Personal history of transient ischemic attack (TIA), and cerebral infarction without residual deficits Category: Medical Plan The patient's blood pressure and cholesterol are controlled. Continue current regimens. Currently suboptimal control of type 2 diabetes. Recently established with endocrinology. I will message regarding Reanna 3 sensor and reader. Referred anew to Podiatry and Ophthalmology. Results of swallow study we will be available soon. Appointment is scheduled tomorrow. I need to review his past medical records. Sent message to clinic staff to obtain records. Patient's daughter says there is going to be disability paperwork that needs to be completed. She will try to upload it to the portal. They did not have a paper copy today. Follow up in 3 months. Orders: Referrals Ophthalmology Referral E11.9 - Type 2 diabetes mellitus without complications, Z01.00 - Encounter for examination of eyes and vision without abnormal findings Podiatry Referral E11.59 - Type 2 diabetes mellitus with other circulatory complications Medications: Refilled blood-glucose sensor (FreeStyle Reanna 3 Sensor device) for continuous glucose monitoring as pt is on lantus and lispro insulins 2 ea 11RF blood sugar monitoring E11.59 - Type 2 diabetes mellitus with other circulatory complications, Z86.73 - Personal history of transient ischemic attack (TIA), and cerebral infarction without residual deficits Discontinued blood-glucose meter,continuous (FreeStyle Reanna 3 [place]) Discontinued Reason: Doctor's Order As directed 1 ea 1RF blood-glucose sensor (FreeStyle Reanna 3 Sensor device) Discontinued Reason: Doctor's Order As directed 2 ea 11RF
[2024-09-08 12:11] VITALS: BP 112/70; PULSE 51; O2SAT 100
[2024-09-08 12:21] VITALS: PULSE 64
== END 2024-09-08 12:38 | disposition home or self-care (01) ==
LOC: HO.HMCFM 11:30
PROVIDERS: PCP Physician Assistant Medical; Visit Provider Physician Assistant Medical
DX: I69.353 Hemiplegia and hemiparesis following cerebral infarction affecting right non-dominant side (principal); I48.0 Paroxysmal atrial fibrillation; E11.59 Type 2 diabetes mellitus with other circulatory complications; E78.00 Pure hypercholesterolemia, unspecified; I10 Essential (primary) hypertension; Z86.73 Personal history of transient ischemic attack (TIA), and cerebral infarction without residual deficits

== ENCOUNTER → 2024-09-08 11:29 | Outpatient (BNVA) | payer MEDICARE, MEDICAID, SELFPAY | PROVIDERS: PCP Physician Assistant Medical; Visit Provider Physician Assistant Medical | DX: I69.353 Hemiplegia and hemiparesis following cerebral infarction affecting right non-dominant side (principal); E78.00 Pure hypercholesterolemia, unspecified; I10 Essential (primary) hypertension; I48.0 Paroxysmal atrial fibrillation; E11.59 Type 2 diabetes mellitus with other circulatory complications | CPT/HCPCS: 99212 ==

== ENCOUNTER 2024-09-23 10:27 | Outpatient (REF) | payer MEDICARE, MEDICAID, SELFPAY ==
--- NOTE | ~2024-09-23 | FL_ITS ---
EXAMINATION: Modified Barium Swallow CLINICAL INFORMATION: Dysphagia COMPARISON: None TECHNIQUE: Modified barium swallow was performed under lateral fluoroscopy with patient in standing position. Barium mixed with solids and liquids of different consistencies was administered by the speech pathologist. Examination was recorded in the fluoroscopy suite. FINDINGS: There is trace laryngeal penetration with thin barium. No subglottic aspiration was observed. There is an anterior bridging osteophyte at C5-C6 that causes mild posterior compression of the cervical esophagus. FLUOROSCOPY TIME: 1 minute 41 seconds Number of Spot Images: N/A DOSE AREA PRODUCT: 759.5 uGy-m2 (microgray-meter squared) FL/FL Modified Barium Swallow IMPRESSION: 1. Trace laryngeal penetration with thin consistency barium. No subglottic aspiration was observed. 2. Anterior bridging osteophyte at C5-C6 that causes mild posterior compression of the cervical esophagus. Refer to the speech therapy report for further clarification This procedure was performed by Neymar Mitchell PA-C, and supervised by Dr. Chand Electronically signed by: Samir Chand MD 09/23/2024 04:20 PM [facility] [place]
--- NOTE | 2024-09-26 10:01 | MHC.SL.IMP ---
Date of Plan of Treatment: 09/23/24 Onset of Symptoms/Illness: 09/23/20 Date Treatment Started: 09/23/24 Admitting Diagnosis: Dysphagia, oropharyngeal dysphagia (R13.12) Primary Speech & Language Diagnosis: R13.12 Oropharyngeal Phase Dysphagia Secondary Speech & Language Diagnosis: R47.01 Aphasia Reason for Today's Visit: 79850 Modified Barium Swallow Study Pre-evaluation Dietary Consistencies: Regular Pre-evaluation Liquid Consistency: Thin Pre-evaluation Medication Administration: Whole with Liquid Medical History: Mild anemia Pure hypercholesterolemia Paroxysmal atrial fibrillation Type 2 diabetes mellitus with vascular disease History of multiple cerebrovascular accidents (CVAs) Aphasia Abnormal posture Dysphagia, oropharyngeal phase Muscle weakness (generalized) Paralysis of vocal cords and larynx, unspecified Dysphasia following cerebral infarction Hemiplegia and hemiparesis following cerebral infarction affecting right non-dominant side Afib Hypertension Metabolic encephalopathy Diabetes type 2, controlled Insomnia Supraventricular tachycardia Cerebral infarction due to unspecified occlusion or stenosis of other cerebral artery Encounter for nasogastric (NG) tube placement Stroke Oral Motor Exam Facial Symmetry: Asymmetry- Right Side Oral Expression Ability: Severe Impairment Is patient able to manage secretions?: Yes Is patient able to produce volitional cough?: Yes Food and Liquid Trials: Oral Impairment: Lip Closure: 1=Interlabial escape; no progression to anterior tip Oral Impairment: Tongue Control During Bolus Hold: Did not test Oral Impairment: Bolus Preparation/Mastication: 1=Slow prolonged chewing/mashing with complete re-collection Oral Impairment: Bolus Transport/Lingual Motion: 0=Brisk tongue motion Oral Impairment: Oral Residue: 1=Trace residue lining oral structures Oral Impairment:Initiation of Pharyngeal Swallow: 3=Bolus head in pyriforms Pharyngeal Impairment: Soft Palate Elevation: 0=No bolus between soft palate (SP)/pharyngeal wall (PW) Pharyngeal Impairment: Laryngeal Elevation: 1=Partial thyroid cartilage/arytenoids to epiglottic petiole movement Pharyngeal Impairment: Anterior Hyoid Excursion: 0=Complete anterior movement Pharyngeal Impairment: Epiglottic Movement: 0=Complete inversion Pharyngeal Impairment: Laryngeal Vestibular Closure:: 1=Incomplete: narrow column air/contrast in laryngeal vestibule Pharyngeal Impairment: Pharyngeal Stripping Wave: 0=Present: complete Pharyngeal Impairment: Pharyngeal Contraction: Did not test Pharyngeal Impairment: Pharyngoesophageal Segment Openin=Partial distention/partial duration: partial obstruction of flow Pharyngeal Impairment: Tongue Base (TB) Retraction: 1=Trace column of contrast/air between TB and posterior PW Pharyngeal Impairment: Pharyngeal Residue: 1=Trace residue within or on pharyngeal structures Pharyngeal Impairment: Esophageal Clearance Upright Position: Did not test Impressions and Recommendations Clinical Observations: Current (pre-evaluation) Intake/Diet: Pre-Study Functional Oral Intake Scale (FOIS): 7- Total oral intake with no restrictions [facility] ID: [id number] [facility] Results: Lip closure for intraoral bolus containment resulted in interlabial escape, without progression to the anterior lip. Tongue control during bolus hold could not be assessed due to logistical reasons not related to physiologic impairment. Bolus preparation and mastication resulted in slow, prolonged chewing/mashing but with complete re-collection. Bolus transport/lingual motion was with brisk tongue motion. Oral residue was a trace, lining oral structures. Initiation of the pharyngeal swallow occurred when the bolus head was in the pyriform sinuses. Soft palate elevation resulted in no bolus between the soft palate and the pharyngeal wall. Laryngeal elevation was decreased, with partial superior movement of the thyroid cartilage/partial approximation of the arytenoids to the epiglottic petiole. Anterior hyoid excursion demonstrated complete anterior movement. Epiglottic movement resulted in complete inversion. Laryngeal vestibular closure was incomplete, with a narrow column of air/contrast noted within the laryngeal vestibule at the height of the swallow. Pharyngeal stripping wave was present and complete. Pharyngeal contraction could not be determined due to logistical reasons not related to physiologic impairment. Pharyngoesophageal segment opening demonstrated partial distension/partial duration, with partial obstruction of bolus flow. Tongue base retraction allowed a trace column of contrast or air between the retracted tongue base and the posterior pharyngeal wall. Pharyngeal residue was a trace within or on pharyngeal structures. Esophageal clearance in the upright position could not be assessed due to logistical reasons not related to physiologic impairment. Oral Impairment Score: 4 (absence of score, component 2) Pharyngeal Impairment Score: 3 (absence of score, component 13) Esophageal Impairment Score: --- (absence of score, component 17) Laryngeal Penetration and Aspiration: Penetration was observed in today's study. Cookie, Pudding-thick, Thin Contrast entered the airway, remained above the vocal folds, and were ejected from the airway. PLAN: Intake Recommendations: Post-Study Functional Oral Intake Scale (FOIS): 6- Total oral intake with no special preparation, but must avoid specific foods or liquid items SUMMARY: Jose was provided Thin Liquids via Spoon, administered Cup Sip and self-administered Straw Sip. He was also provided Puree Solids and Regular Solids via spoon due to limitations in self-feeding. No aspiration was observed during today's study. He was noted to have flash penetration with spontaneous removal of contrast during the swallow across consistencies. He had timely oral preparation of Solids with minimal oral or pharyngeal contrast. Swallow components that negatively impacted his performance included delayed swallow initiation and reduced laryngeal elevation. After discussing the results with his Daughter, she agrees to continue his current diet of Soft Solids (IDDSI L6 - Soft & Bite-Sized Solids) and Thin Liquids. They will continue to monitor his condition at home. Liquid Intake Recommendation: Thin Liquid Intake Strategies: Unrestricted Dietary Recommendations: Chopped/Advanced (NDD3) Medication Administration: Whole with Puree Please contact the pharmacy regarding appropriate crushable or liquid drug formulations that are available whenever modified delivery is recommended. Compensatory Strategies Recommended: Sitting Upright (90 deg) Small Bites and Sips Alternate Liquids/Solids Rate of Ingestion Change Supervision during eating and or drinking: Total Supervision (1:1) Recommended Treatments: Compens. Strategy Educat. Recommendation for Speech Therapy: Discharged with Instructions for Home Use Frequency/Duration: N/a Date Range for Service Requested: N/a Timeline to reassess: PRN Knitter Helper Clinician/Clinical Fellow: No Supervisory Statement: N/A Speech Language Pathologist: Miguel Acevedo M.A., CCC-REAL ESTATE DIRECTOR
== END 2024-09-23 10:28 | disposition home or self-care (01) ==
LOC: HO.XRAY 10:27
PROVIDERS: Visit Provider Physician Assistant Medical
DX: R13.12 Dysphagia, oropharyngeal phase (principal); Z86.73 Personal history of transient ischemic attack (TIA), and cerebral infarction without residual deficits
CPT/HCPCS: 74230; 92611

== ENCOUNTER → 2024-09-23 10:31 | Outpatient (BNV) | payer MEDICARE, MEDICAID, SELFPAY | PROVIDERS: Visit Provider Physician Assistant Surgical | DX: R13.10 Dysphagia, unspecified (principal); M25.78 Osteophyte, vertebrae | CPT/HCPCS: 74230 ==

== ENCOUNTER 2025-01-26 09:52 | Outpatient (AMB) | payer MEDICARE, MEDICAID, SELFPAY ==
--- NOTE | 2025-01-26 10:00 | A.OFFPC_ITS ---
Vital Signs 01/26/25 10:05 BMI Reason not done Patient refused/unable BP 124/76 Blood Pressure Location Lt brachial Position Sitting Respiration 14 Pulse 58 Pulse Source Pulse Oximeter Pulse Oximetry (%) 100 Oxygen Delivery Method Room Air Intake Visit Reasons: complex 30 min follow up Intake Note: Follow up. Behavioral issues, irritable all the time. Needs refill on ketoconazole shampoo. Business Systems Analyst Required: No Allergies No Known Allergies Allergy (Verified 01/26/25 10:00) Medication List - Last Reconciled 01/27/25 by ALFREDO Hughes alcohol swabs (Alcohol Wipes) 1 pad topical QID apixaban 5 mg PO BID arm brace (KASIA Elbow Brace) As directed aspirin 81 mg PO DAILY atorvastatin (AtorvaliQ) 40 mg (10 mL) PO DAILY 30 days bethanechol chloride 25 mg PO TID 90 days blood sugar diagnostic (FreeStyle Lite Strips) Use 1 strip as directed with glucometer to check blood glucose 3 times daily. blood-glucose meter (FreeStyle Lite Meter kit) As directed blood-glucose meter,continuous (FreeStyle Reanna 3 Aston) As directed blood-glucose sensor (FreeStyle Reanna 3 Sensor device) for continuous glucose monitoring as pt is on lantus and lispro insulins bolus insulin pump, 200 unit (CeQur Simplicity) As directed every 4 days diabetic supplies, miscellan. (CeQur Simplicity Anthropology Faculty Member) As directed diaper,brief,adult,disposable As directed glucagon HCl (Glucagon (HCl) Emergency Kit) 1 mg subcut Q20M PRN insulin glargine (Lantus Solostar U-100 Insulin) 12 units (0.12 mL) subcut BEDTIME insulin lispro (Humalog U-100 Insulin) 10 units before breakfast, 12 before lunch and dinner insulin lispro (Humalog KwikPen U-200 Insulin) 10 units subcut USEASDIRECTD ketoconazole 2% 1 appl topical 3XW lancets (FreeStyle Lancets) As directed - 4 times per day leg brace As directed melatonin 6 mg (2 x 3 mg) PO BEDTIME 90 days metoprolol tartrate 50 mg PO QID 90 days miscellaneous medical supply 1 ea miscellaneous DAILY pen needle, diabetic (BD Ultra-Fine Short Pen Needle) As directed polyethylene glycol 3350 (Miralax) 17 grams PO DAILY sennosides (senna) 8.6 mg PO BEDTIME Tobacco use date assessed: 05/20/24 Dental Screening Dental Screen Date: 05/20/24 HPI HPI Comments History of Present Illness Details This is a 55-year-old male with a past medical history of multiple CVAs with residual right-sided weakness, aphasia, memory impairment, atrial fibrillation, hypertension, hyperlipidemia and type 2 diabetes presenting for follow up. He is accompanied by his daughter, Susan. The patient is mostly nonverbal. Patient is wheelchair bound. Still have not received past medical records. Susan has decreased her caretaking hours, and now they have caretakers from [employer] and a visiting nurse every Thursday. Jason Suero RN is his binder caser. The patient needs and N468 form for disability completed. Patient is followed by endocrinology, but he is overdue for follow up. They were trying to get him a secure device. He was diagnosed with type 2 diabetes when he was hospitalized in 2019. Hemoglobin A1c 8.6% 08/26/2024. Glucose 7 day average is 185. Denies hypoglycemia. Eye exam is up-to-date. Susan reports no ocular manifestations of diabetes. Patient currently taking Lantus 12 units daily and Humalog 10 units before br eakfast and 12 units before lunch and dinner. Patient had a CVA in 2019 resulting in residual right-sided weakness, memory impairment, aphasia and dysphagia. He had a G-tube and was slowly advanced, and now he eats a normal diet. Underwent modified barium swallow study within the past year. He was hospitalized again at [facility] in early 2022 for ?multiple small strokes. ? He was then discharged to [facility] where he resided until he moved to [place], [place] in April 2024 to join his and daughter. Susan is his BOTTLE BLOWER, and she manages his medications. Patient is a nonsmo ker. He only drank alcohol occasionally prior to the strokes. They say that he was diagnosed with atrial fibrillation when he was hospitalized once at [facility]. Patient currently on Eliquis, aspirin, atorvastatin, metoprolol. LDL 69 with a goal of less than 70. ROS: Unable to obtain ROS due to cognitive impairment/nonverbal patient. Physical exam: Constitutional: Alert, seated in wheelchair Head: Normocephalic. Neck: Supple, Full range of motion. No lymphadenopathy. Respiratory: Clear to auscultation. Cardiovascular: S1 S2 regular. II/ systolic murmur. Neurologic: Right sided weakness. Nonverbal. Skin: No rashes Extremities: Warm and well perfused. No clubbing, cyanosis or edema. [facility] Medical History Mild anemia Pure hypercholesterolemia Paroxysmal atrial fibrillation Type 2 diabetes mellitus with vascular disease History of multiple cerebrovascular accidents (CVAs) Aphasia Abnormal posture Dysphagia, oropharyngeal phase Muscle weakness (generalized) Paralysis of vocal cords and larynx, unspecified Dysphasia following cerebral infarction Hemiplegia and hemiparesis following cerebral infarction affecting right non- dominant side Afib Hypertension Metabolic encephalopathy Diabetes type 2, controlled Insomnia Supraventricular tachycardia Cerebral infarction due to unspecified occlusion or stenosis of other cerebral artery Encounter for nasogastric (NG) tube placement Stroke Surgical History Gastrostomy status Family History Other No pertinent family history Social History Household Members: Spouse and Children Housing: House 75 years or older and lives alone: No Alcohol intake: never Patient Tobacco Use Status: Never used Tobacco e-Cigarette/Vaping Use: Never Used Advance Directives Date on File: 05/20/24 service: No Current occupational status: disabled Current occupational exposures/hazards: No Cognitive needs: Yes Hearing needs: No Vision needs: No Questionnaire PHQ-9 Over the last 2 weeks, how often have you been bothered by any of the following problems? 1. Little interest or pleasure in doing things: not at all 2. Feeling down, depressed, or hopeless: not at all Source: Developed by Drs. Bennie Nunez, Torri Cisneros, Les Sanches and colleagues, with an educational tish from [employer]. Thrive Questionnaire Date Thrive assessed: 12/02/24 Do you have trouble paying your heating and electricity bill?: Yes Do you have trouble taking care of your child, family member or friend?: No Do you have trouble with day-to-day activities such as bathing, preparing meals, shopping, managing finances, etc.?: No Are you currently unemployed and looking for a job?: I choose not to answer this question Are you interested in more education?: I choose not to answer this question Currently or been in a relationship where the following occur: No concerns reported THRIVE Score: 1 LIZZIE-7 AMB Questionnaire LIZZIE-7 Date LIZZIE - 7 assessed: 05/20/24 Feeling nervous, anxious, or on edge: 3 = Nearly every day Not being able to stop or control worryin = Not at all Worrying too much about different things: 0 = Not at all Trouble relaxin = Not at all Being so restless that it is hard to sit still: 0 = Not at all Becoming easily annoyed or irritable: 0 = Not at all Feeling afraid as if something awful might happen: 0 = Not at all Total LIZZIE-7 score (0-4 normal; 5-9 mild; 10-14 moderate; 15-21 severe): 3 Source: Developed by Drs. Bennie Nunez, Torri Cisneros, Les Sanches and colleagues, with an educational tish from [employer]. Physical exam (Primary Care) Vital Signs: Last Vital Signs Pulse 58 01/26/25 10:05 Resp 14 01/26/25 10:05 BP 124/76 01/26/25 10:05 Pulse Ox 100 01/26/25 10:05 Oxygen Delivery Method Room Air 01/26/25 10:05 Tobacco/Smoking Status: Tobacco use Status Tobacco use date assessed 05/20/24 01/26/25 10:07 Patient Tobacco Use Status Never used Tobacco 01/26/25 10:07 e-Cigarette/Vaping Use Never Used 01/26/25 10:07 Thrive Assessment: Date of Thrive Assessment Date Thrive assessed 12/02/24 01/26/25 10:07 Currently or been in a relationship where the following occur: No concerns reported Results Reviewed Results Reviewed: Laboratory Tests 05/20/24 13:19 Plt Count 230 Potassium 4.1 Creatinine 0.89 Estimated GFR > 60 Random Glucose 259 H Hemoglobin A1c % 8.4 H Calcium 9.5 AST 16 ALT 14 Triglycerides 68 Cholesterol 121 LDL Cholesterol, Calc 69 HDL Cholesterol 39 L TSH 0.86 Coding Level of Care Code Est Pt Level 4 (57518) Complex EM visit Add On G2211 Diagnoses Hemiplegia and hemiparesis following cerebral infarction affecting right non- dominant side I69.353 Pure hypercholesterolemia E78.00 Primary hypertension I10 Hypertension type: primary hypertension Paroxysmal atrial fibrillation I48.0 Type 2 diabetes mellitus with vascular disease E11.59 History of multiple cerebrovascular accidents (CVAs) Z86.73 Aphasia R47.01 Assessment & Plan Assessment & Plan (1) Hemiplegia and hemiparesis following cerebral infarction affecting right non-dominant side: Code(s): I69.353 - Hemiplegia and hemiparesis following cerebral infarction affecting right non-dominant side Category: Medical (2) Pure hypercholesterolemia: Code(s): E78.00 - Pure hypercholesterolemia, unspecified Category: Medical (3) Hypertension: Code(s): I10 - Essential (primary) hypertension Category: Medical Qualifiers: Hypertension type: primary hypertension Qualified Code(s): I10 - Essential (primary) hypertension (4) Paroxysmal atrial fibrillation: Code(s): I48.0 - Paroxysmal atrial fibrillation Category: Medical (5) Type 2 diabetes mellitus with vascular disease: Code(s): E11.59 - Type 2 diabetes mellitus with other circulatory complications Category: Medical (6) History of multiple cerebrovascular accidents (CVAs): Code(s): Z86.73 - Personal history of transient ischemic attack (TIA), and cerebral infarction without residual deficits Category: Medical (7) Aphasia: Code(s): R47.01 - Aphasia Category: Medical Plan 55-year-old male, nonverbal, status post multiple CVAs, history of atrial fibrillation and type 2 diabetes. Currently stable. Patient has visiting nurse once a week and caregivers from [employer] agency. His daughter coordinates care. The patient's blood pressure and cholesterol are controlled. Continue current regimens. Advised them to follow back up with endocrinology. Referred anew so they will be contacted to schedule an appointment. Continue current regimen at this time. Eye exam up-to-date. Advised them to sign a new release for his medical records. Referred to Cardiology and Neurology. I will complete the form needed. Ordered labs to be done today. Follow up in 3 months. Orders: Orders Vitamin B12 01/26/25 ALFREDO Hughes D64.9 - Anemia, unspecified, E11.59 - Type 2 diabetes mellitus with other circulatory complications, E78.00 - Pure hypercholesterolemia, unspecified, Z91.89 - Other specified personal risk factors, not elsewhere classified Comprehensive Met. Panel 01/26/25 ALFREDO Hughes D64.9 - Anemia, unspecified, E11.59 - Type 2 diabetes mellitus with other circulatory complications, E78.00 - Pure hypercholesterolemia, unspecified Hemoglobin A1c 01/26/25 ALFREDO Hughes D64.9 - Anemia, unspecified, E11.59 - Type 2 diabetes mellitus with other circulatory complications, E11.9 - Type 2 diabetes mellitus without complications, E78.00 - Pure hypercholesterolemia, unspecified Complete Blood Count Auto Diff 01/26/25 ALFREDO Hughes D64.9 - Anemia, unspecified, E11.59 - Type 2 diabetes mellitus with other circulatory complications, E78.00 - Pure hypercholesterolemia, unspecified Lipid Panel 01/26/25 ALFREDO Hughes D64.9 - Anemia, unspecified, E11.59 - Type 2 diabetes mellitus with other circulatory complications, E78.00 - Pure hypercholesterolemia, unspecified, E78.5 - Hyperlipidemia, unspecified Referrals Endocrinology Referral ALFREDO Hughes E11.59 - Type 2 diabetes mellitus with other circulatory complications Cardiology Referral ALFREDO Hughes R47.01 - Aphasia Neurology Referral ALFREDO Hughes I69.353 - Hemiplegia and hemiparesis following cerebral infarction affecting right non-dominant side, Z86.73 - Personal history of transient ischemic attack (TIA), and cerebral infarction without residual deficits Medications: New ketoconazole 2% apply to scalp one time a day every thursday, thursday, thursday for dandruff 1 appl topical 3XW 120 mL 5RF ALFREDO Hughes Changed From insulin lispro (Humalog U-100 Insulin) for use with CeQur insulin patch pump 5clicks for each meal each click equals 2 units subcutaneously use as directed; 30 days 10 mL 11RF To insulin lispro (Humalog U-100 Insulin) 10 units before breakfast, 12 before lunch and dinner Helen Chauhan NP
[2025-01-26 10:05] VITALS: BP 124/76; PULSE 58; RESP 14; O2SAT 100
== END 2025-01-26 10:50 | disposition home or self-care (01) ==
LOC: HO.HMCFM 09:53
PROVIDERS: PCP Physician Assistant Medical; Visit Provider Physician Assistant Medical
DX: I69.353 Hemiplegia and hemiparesis following cerebral infarction affecting right non-dominant side (principal); I48.0 Paroxysmal atrial fibrillation; E11.59 Type 2 diabetes mellitus with other circulatory complications; E78.00 Pure hypercholesterolemia, unspecified; Z86.73 Personal history of transient ischemic attack (TIA), and cerebral infarction without residual deficits; I10 Essential (primary) hypertension; R47.01 Aphasia

== ENCOUNTER → 2025-01-26 09:52 | Outpatient (BNVA) | payer MEDICARE, MEDICAID, SELFPAY | PROVIDERS: PCP Physician Assistant Medical; Visit Provider Physician Assistant Medical | DX: I69.353 Hemiplegia and hemiparesis following cerebral infarction affecting right non-dominant side (principal); I10 Essential (primary) hypertension; I48.0 Paroxysmal atrial fibrillation; E78.00 Pure hypercholesterolemia, unspecified; E11.59 Type 2 diabetes mellitus with other circulatory complications; R47.01 Aphasia | CPT/HCPCS: 99212 ==

== ENCOUNTER 2025-03-03 12:21 | Outpatient (AMB) | payer MEDICARE, MEDICAID, SELFPAY ==
--- NOTE | 2025-03-03 10:17 | A.OFFVIS_ITS ---
Vital Signs 03/03/25 12:24 Height 5 ft 5 in BMI Reason not done Patient refused/unable BP 134/68 Blood Pressure Location Rt brachial Position Sitting Pulse 64 Pulse Source Pulse Oximeter Pulse Oximetry (%) 99 Oxygen Delivery Method Room Air Intake Visit Reasons: T2DM Intake Note: Patient presents today for a follow-up on Type 2 Diabetes Mellitus: Last Diabetic eye exam was on: 10/2024 Last Podiatry exam was on: Does not see a Accredited Farm Manager Most recent HbA1c: 8.9%, 03/03/2025 Random Glucose- 199 mg/dL, Today Level Vial Inspector Required: No Accompanied by: Daughter Counter Tacker Allergies No Known Allergies Allergy (Verified 03/03/25 12:30) HPI Comments Details: 54 YO male who is seen in follow-up for T2DM. He was seen as an initial consult 06/15/2024 at which time a freestyle Reanna 3, Podiatry and Ophthalmology consults were ordered and we discussed potentially going on CeQur which is a 4 day insulin patch. His daughter is primarily responsible for administering insulin and this would ease care burden. Unfortunately it has been quite some time and we will we have not heard back from they insurance. History obtained by daughter, Patient is mainly non verbal s/p cva with dysphagia, hemiplegia and hemiparesis. He is in a wheel chair. Hemoglobin A1c 03/03/25 8.9%,08/26/2024 8.6 %, 05/20/2024 8.4%. Initially diagnosed with T2DM in [2020]. 08/2024 louisa antibodies negative islet cell antibody negative c peptide was ordered but not one by lab Was initially started on treatment with oral agents, daughter is not certain of which medications. Has been on insulin since approximately 2020. Current regimen Lantus 12 units Humalog 08-20-12 Checks glucose twice daily with an average of 194 A.m. 150-200 later in the diet primarily 145 to mid 2s, 2 readings in the 300 range Treats lows with [oj 1/2 glass]. [Checks] sugar after to ensure it is rising. [Treats] according to rule of 15's. Family history of T2DM: None in parents Has eyes checked yearly, last eye exam [1 year ago], [not certain] retinopathy. Has neuropathy, does not see podiatry. No nephropathy: No micro albumin in EHR, eGFR>60 05/2024 Has HLD, on liquid statin Denies CAD. Had a stroke 4 years ago. Has been wheel chair bound since stroke, speech impaired, right arm lost mobility. Gets PT at home. OT at home. Denies alcohol/tobacco use Diet: oatmeal with fruit or egg sandwich, lunch sandwich or veg/protein (chicken or salmon) supper rice/veg/fish No added sugar small quantity juice Weight: Has been able to increase his weight since [facility] months ago. No diabetes education in the past. 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 Afib Hypertension Metabolic encephalopathy Diabetes type 2, controlled Insomnia Supraventricular tachycardia Cerebral infarction due to unspecified occlusion or stenosis of other cerebral artery Encounter for nasogastric (NG) tube placement Stroke Surgical History Gastrostomy status Family History Other No pertinent family history Social History Household Members: Spouse and Children Housing: House 75 years or older and lives alone: No Alcohol intake: never Patient Tobacco Use Status: Never used Tobacco e-Cigarette/Vaping Use: Never Used Advance Directives Date on File: 05/20/24 service: No Current occupational status: disabled Current occupational exposures/hazards: No Cognitive needs: Yes Hearing needs: No Vision needs: No Physical Exam Vital Signs: Last Vital Signs Pulse 64 03/03/25 12:24 BP 134/68 03/03/25 12:24 Pulse Ox 99 03/03/25 12:24 Oxygen Delivery Method Room Air 03/03/25 12:24 Const Other: Absence of Cushingoid features. Absence of acromegalic features. Neck exam reveals nl size thyroid about 15 gms. No thyroid nodules palpable. Heart S1 S2, Reg R/R. No M/R G. Skin exam reveals absence of vitiligo or acanthosis nigricans. Aphasic. hemiplegia Foot exam no open wound Results Reviewed Results Reviewed: Laboratory Last Values Glucose (Clinic) 199 mg/dL (60-115) H 03/03/25 12:36 Assessment & Plan Assessment & Plan (1) Type 2 diabetes mellitus with vascular disease: Code(s): E11.59 - Type 2 diabetes mellitus with other circulatory complications Category: Medical Plan: Type 2 diabetic whose care is complicated by hemiplegia and aphasia from stroke. He is cared for by multiple family members. It would be beneficial to change this patient to a CeQur insulin patch get him started on a freestyle Reanna 3+. New insulin dose Lantus 16 units Short-acting insulin 10 for breakfast 12 for lunch 12 for supper ask questions Orders: Orders AMB Hemoglobin A1c 03/03/25 E11.59 - Type 2 diabetes mellitus with other circulatory complications Medications: New Tresiba FlexTouch U-100 (insulin degludec) 16 units (0.16 mL) subcut BEDTIME 30 days 6 mL 11RF NS Discontinued insulin lispro (Humalog U-100 Insulin) Discontinued Reason: Insurance Denied 10 units before breakfast, 12 before lunch and dinner 10 mL 5RF insulin glargine (Lantus Solostar U-100 Insulin) Discontinued Reason: Doctor's Order 16 units (0.16 mL) subcut BEDTIME 30 days 6 mL 11RF Coding Level of Care Code Est Pt Level 4 (87477) Complex EM visit Add On G2211 Diagnoses Type 2 diabetes mellitus with vascular disease E11.59 Time Spent (min) 30 Comment Time spent reviewing labs/provider notes, face to face, chart doc
[2025-03-03 12:24] VITALS: BP 134/68; PULSE 64; O2SAT 99
[2025-03-03 12:41] LABS: Glucose, Whole Blood 199 mg/dL (60-115)
== END 2025-03-03 12:58 | disposition home or self-care (01) ==
LOC: HO.ENCR 12:22
PROVIDERS: PCP Physician Assistant Medical; Visit Provider Nurse Practitioner Adult Health
DX: E11.59 Type 2 diabetes mellitus with other circulatory complications (principal)
CPT/HCPCS: 99214; G2211

== ENCOUNTER → 2025-03-03 12:21 | Outpatient (BNVA) | payer MEDICARE, MEDICAID, SELFPAY | PROVIDERS: PCP Physician Assistant Medical; Visit Provider Nurse Practitioner Adult Health | DX: E11.59 Type 2 diabetes mellitus with other circulatory complications (principal) | CPT/HCPCS: 82947; 99212 ==

== ENCOUNTER 2025-05-04 12:44 | Outpatient (AMB) | payer MEDICARE, MEDICAID, SELFPAY ==
--- NOTE | 2025-05-04 13:51 | A.OFFPC_ITS ---
Vital Signs 05/04/25 13:55 Height 5 ft 5 in BMI Reason not done Patient refused/unable BP 102/86 Blood Pressure Location Lt brachial Position Sitting Pulse 94 Pulse Source Pulse Oximeter Temp 98.2 F Temp Source Temporal Artery Scan Pulse Oximetry (%) 97 Oxygen Delivery Method Room Air Intake Visit Reasons: complex 30 min follow up Intake Note: Nahid presents in the office today for a follow up. Allergies No Known Allergies Allergy (Verified 05/04/25 13:52) Tobacco use date assessed: 05/20/24 Dental Screening Dental Screen Date: 05/04/25 Did you have a dental visit in the last 12 months?: No Did you have a dental problem in the last 6 months where you did not have access to dental care?: No Was dental information given to patient?: Patient declined HPI HPI Comments History of Present Illness Details This is a 55-year-old male with a past medical history of multiple CVAs with residual right-sided weakness, aphasia, memory impairment, atrial fibrillation, hypertension, hyperlipidemia and type 2 diabetes presenting for follow up. He is accompanied by his daughter, Susan. The patient is mostly nonverbal. Patient is wheelchair bound. Susan has decreased her caretaking hours, and [facility] and a visiting nurse every Thursday. Jason Suero RN is his case management social worker. Patient is followed by endocrinology. He was diagnosed with type 2 diabetes when he was hospitalized in 2019. Hemoglobin A1c 8.9% 03/03/2025. 14 day 71% target range 0% low 29% high He had 1 or 2 lows. Treated with a banana. BG 65. Susan says this was in the afternoon. Eye exam is up-to-date. Susan reports no ocular manifestations of diabetes. Patient currently taking Tresiba 18 daily and Novolog 10 units before breakfast and 12 units before lunch and dinner. Patient had a CVA in 2019 resulting in residual right-sided weakness, memory impairment, aphasia and dysphagia. He had a G-tube and was slowly advanced, and now he eats a normal diet. Underwent modified barium swallow study within the past year. She endorses coughing when eating and clearing his throat and coughing after eating. He was hospitalized again at [facility] in early 2022 for ?multiple small strokes. ? He was then discharged to [facility] where he resided until he moved to [place], [place] in April 2024 to join his and daughter. Susan is his REAL ESTATE LEGAL SECRETARY, and she manages his medications. Patient is a nonsmoker. He only drank alcohol occasionally prior to the strokes. He has been referred to [facility]. They say that he was diagnosed with atrial fibrillation when he was hospitalized once at [facility]. Patient currently on Eliquis, aspirin, atorvastatin, metoprolol. LDL 69 with a goal of less than 70. He has a Cardiology consult 06/23/2025. He sometimes wakes up early in the morning. Susan has been only giving 3 mg of Melatonin, but the prescription is for 6 mg. ROS: Unable to obtain ROS due to cognitive impairment/nonverbal patient. Physical exam: Constitutional: Alert, seated in wheelchair Head: Normocephalic. Neck: Supple, Full range of motion. No lymphadenopathy. Respiratory: Clear to auscultation. Cardiovascular: S1 S2 regular. II/ systolic murmur. Neurologic: Right sided weakness. Nonverbal. Skin: No rashes Extremities: Warm and well perfused. No clubbing, cyanosis or edema. [facility] Medical History Mild anemia Pure hypercholesterolemia Paroxysmal atrial fibrillation Type 2 diabetes mellitus with vascular disease History of multiple cerebrovascular accidents (CVAs) Aphasia Abnormal posture Dysphagia, oropharyngeal phase Muscle weakness (generalized) Paralysis of vocal cords and larynx, unspecified Dysphasia following cerebral infarction Hemiplegia and hemiparesis following cerebral infarction affecting right non- dominant side Afib Hypertension Metabolic encephalopathy Diabetes type 2, controlled Insomnia Supraventricular tachycardia Cerebral infarction due to unspecified occlusion or stenosis of other cerebral artery Encounter for nasogastric (NG) tube placement Stroke Surgical History Gastrostomy status Family History Other No pertinent family history Social History (Updated 05/04/25 @ 13:55 by Mary Allison MA) Household Members: Spouse and Children Housing: House 75 years or older and lives alone: No Alcohol intake: never Patient Tobacco Use Status: Never used Tobacco e-Cigarette/Vaping Use: Never Used Advance Directives Date on File: 05/20/24 service: No Current occupational status: disabled Current occupational exposures/hazards: No Cognitive needs: Yes Hearing needs: No Vision needs: No Questionnaire PHQ-9 Over the last 2 weeks, how often have you been bothered by any of the following problems? 3. Trouble falling or staying asleep, or sleeping too much: several days 4. Feeling tired or having little energy: not at all 5. Poor appetite or overeating: not at all 6. Feeling bad about yourself - or that you are a failure or have let yourself or your family down: not at all 7. Trouble concentrating on things, such as reading the newspaper or watching television: not at all 8. Moving or speaking so slowly that other people could have noticed. Or the opposite - being so fidgety or restless that you have been moving around a lot more than usual: not at all 9. Thoughts that you would be better off or of hurting yourself in some way: not at all Source: Developed by Drs. Bennie Nunez, Torri Cisneros, Les Sanches and colleagues, with an educational tish from [employer]. Thrive Questionnaire Date Thrive assessed: 12/02/24 I am a: Parent/Caregiver What is your living situation today?: I have a steady place to live Within the past 12 months, did the food you bought not last and you didn't have the money to get more?: Sometimes True Within the past 12 months, did you worry whether your food would run out before you got money to buy more?: Sometimes True Do you have trouble paying for medicines?: Yes Do you have trouble getting transportation to medical appointments?: No Do you have trouble paying your heating and electricity bill?: Yes Do you have trouble taking care of your child, family member or friend?: No Do you have trouble with day-to-day activities such as bathing, preparing meals, shopping, managing finances, etc.?: No Are you currently unemployed and looking for a job?: I choose not to answer this question Are you interested in more education?: I choose not to answer this question Currently or been in a relationship where the following occur: No concerns reported THRIVE Score: 3 LIZZIE-7 AMB Questionnaire LIZZIE-7 Date LIZZIE - 7 assessed: 05/20/24 Source: Developed by Drs. Bennie Nunez, Torri Cisneros, Les Sanches and colleagues, with an educational tish from [employer]. Physical exam (Primary Care) Vital Signs: Last Vital Signs Temp 98.2 F 05/04/25 13:55 Pulse 94 05/04/25 13:55 BP 102/86 05/04/25 13:55 Pulse Ox 97 05/04/25 13:55 Oxygen Delivery Method Room Air 05/04/25 13:55 Tobacco/Smoking Status: Tobacco use Status Tobacco use date assessed 05/20/24 05/04/25 13:59 Patient Tobacco Use Status Never used Tobacco 05/04/25 13:59 e-Cigarette/Vaping Use Never Used 05/04/25 13:59 Thrive Assessment: Date of Thrive Assessment Date Thrive assessed 12/02/24 05/04/25 13:59 Currently or been in a relationship where the following occur: No concerns reported Coding Level of Care Code Est Pt Level 4 (30655) Complex EM visit Add On G2211 Diagnoses Hemiplegia and hemiparesis following cerebral infarction affecting right non- dominant side I69.353 Pure hypercholesterolemia E78.00 Primary hypertension I10 Hypertension type: primary hypertension Paroxysmal atrial fibrillation I48.0 Type 2 diabetes mellitus with vascular disease E11.59 History of multiple cerebrovascular accidents (CVAs) Z86.73 Assessment & Plan Assessment & Plan (1) Hemiplegia and hemiparesis following cerebral infarction affecting right non-dominant side: Code(s): I69.353 - Hemiplegia and hemiparesis following cerebral infarction affecting right non-dominant side Category: Medical (2) Pure hypercholesterolemia: Code(s): E78.00 - Pure hypercholesterolemia, unspecified Category: Medical (3) Hypertension: Code(s): I10 - Essential (primary) hypertension Category: Medical Qualifiers: Hypertension type: primary hypertension Qualified Code(s): I10 - Essential (primary) hypertension (4) Paroxysmal atrial fibrillation: Code(s): I48.0 - Paroxysmal atrial fibrillation Category: Medical (5) Type 2 diabetes mellitus with vascular disease: Code(s): E11.59 - Type 2 diabetes mellitus with other circulatory complications Category: Medical (6) History of multiple cerebrovascular accidents (CVAs): Code(s): Z86.73 - Personal history of transient ischemic attack (TIA), and cerebral infarction without residual deficits Category: Medical Plan Continue current medications for hypertension and hyperlipidemia. He had lab work done today, but the results are not available yet. Currently suboptimal control of type 2 diabetes. CGM shows interval improvement in glycemic control though. Continue current regimen. If he has continued low sugars in the afternoon he can reduce NovoLog to 10 units at lunch. Trial of famotidine 20 mg twice daily due to cough reported during and after meals and throat clearing. He underwent a barium swallow study. Cardiology consult is scheduled in June. He has been referred to [facility]. Currently on Eliquis and aspirin. Increase melatonin to 6 mg at bedtime for sleep. Follow up in 3 months. Medications: New famotidine (Pepcid AC) 20 mg PO BID 60 tabs 3RF
[2025-05-04 13:55] VITALS: BP 102/86; PULSE 94; TEMP 36.8; O2SAT 97
--- OUTSIDE RECORDS SUMMARY | 2025-05-04 15:08 | XMS_ITS ---
Author Organization [facility] Care Team Providers Care Ripening Room Attendant Name Role Phone JerryEliecerur Unavailable Unavailable Joe Mabry Unavailable Unavailable Ender, Concetta Unavailable Unavailable ANSWERING, SERVICE Unavailable Unavailable Allergies and adverse reactions No Known Allergies Care Team Name Role Address Phone Organization Dates Demetriusdelphine Edwards [address] [facility] [address], [place], [place], [place], [place] (Office): : [facility] 02/03/2023 - 04/21/2024 Joe Mabry [address] [facility] [address], [address], [facility] (Office): [facility] 02/03/2023 - 04/21/2024 Concetta Handley [address] [address], [place], [address], [place] (Office): [facility] 02/03/2023 - 04/21/2024 SERVICE ANSWERING [facility] 02/03/2023 - 04/21/2024 Immunizations Immunization Status Vaccine Details Vaccine Code CodeSystem Date Notes Prevnar 20 cancelled Pneumococcal conjugate vaccine 20-valent (PCV20), polysaccharide [id number] conjugate, adjuvant, preservative free 216 CVX created date: 03/11/2024 consent date: 03/11/2024 Afluria Quadravalent .5 mL cancelled Influenza, split virus, quadrivalent, injectable, preservative free 150 CVX created date: 10/19/2023 consent date: 10/19/2023 Educated by Harpal on 10/19/2023 Afluria Quadravalent .5 mL cancelled Influenza, split virus, quadrivalent, injectable, preservative free 150 CVX created date: 08/19/2023 consent date: 08/19/2023 refusal present in chart from 02/03/2023 Afluria Quadravalent .5 mL completed Influenza, split virus, quadrivalent, injectable, preservative free 150 CVX created date: 04/29/2023 administer ed date: 09/16/2020 Moderna COVID mRNA 2022- cancelled SARS-COV-2 (COVID-19) vaccine, mRNA, spike protein, LNP, preservative free, 50 mcg/0.5 mL dose 312 CVX created date: 09/11/2023 consent date: 09/11/2023 Educated by Justina Horton on 09/04/2023 Mental Status Section Date Assessment Total Score Description 04/21/2024 BIMS 00 severe cognitiv e impairment CAM 0 No delirium ind icated PHQ-9 00 02/03/2024 BIMS 00 severe cognitiv e impairment CAM 0 No delirium ind icated PHQ-9 00 Problems Problem # Description Date of onset Resolved Date Code CodeSystem Concern Status 1 SUPRAVENTRICULAR TACHYCARDIA, UNSPECIFIED [address] active 2 INSOMNIA, UNSPECIFIED [address] active 3 ABNORMAL POSTURE [address] active 4 APHASIA [address] active 5 APHASIA FOLLOWING CEREBRAL INFARCTION [address] active 6 CEREBRAL INFARCTION DUE TO UNSPECIFIED OCCLUSION OR STENOSIS OF UNSPECIFIED CEREBRAL ARTERY [address] active 7 CEREBRAL INFARCTION, UNSPECIFIED [address] active 8 DYSPHAGIA FOLLOWING CEREBRAL INFARCTION [address] active 9 DYSPHAGIA, OROPHARYNGEAL PHASE [address] active 10 ESSENTIAL (PRIMARY) HYPERTENSION [address] active 11 GASTROSTOMY STATUS [address] active 12 HEMIPLEGIA AND HEMIPARESIS FOLLOWING CEREBRAL INFARCTION AFFECTING RIGHT NON-DOMINANT SIDE [address] active 13 METABOLIC ENCEPHALOPATHY [address] active 14 MUSCLE WEAKNESS (GENERALIZED) [address] active 15 PARALYSIS OF VOCAL CORDS AND LARYNX, UNSPECIFIED [address] active 16 TYPE 2 DIABETES MELLITUS WITHOUT COMPLICATIONS [address] active 17 UNSPECIFIED ATRIAL FIBRILLATION [address] active Reason for Referral No Reasons for Referral Entered Social History Social History Observation Description Start Date End Date Code Code System Current Smoking Status Tobacco smoking consumption unknown 455514637 SNOMED CT Sex Assigned At Male 1970 81433-6 [facility] Gender Identity Vital Signs Code Code System Vitals Name Values and Units Timing Information 38747-6 INC Pain Level Value=0.0 04/21/2024 01233-0 LOINC Weight Dfexu=495.0 Units=Lbs 9279-1 LOINC Respiratory Rate Value=18.0 Units=/m in 04/21/2024 8462-4 LOINC Blood Pressure-Diastolic Value=64 Un its=mmHg 04/21/2024 8480-6 LOINC Blood Pressure-Systolic Jarij=567 Un its=mmHg 04/21/2024 8310-5 LOINC Body Temperature Value=97.2 Units= F 04/21/2024 8867-4 LOINC Heart rate Value=68.0 Units=/min 45431-4 [facility] O2 % BldC Oximetry Value=96.0 Units= % 04/21/2024 8302-2 [facility] Height Value=66.0 Units=Inches 02/09/2024 2339-0 [facility] Blood Sugar Spheo=188.0 Units=mg/dL 05/01/2023
== END 2025-05-04 14:38 | disposition home or self-care (01) ==
LOC: HO.HMCFM 12:45
PROVIDERS: PCP Physician Assistant Medical; Visit Provider Physician Assistant Medical
DX: I48.0 Paroxysmal atrial fibrillation (principal); I69.353 Hemiplegia and hemiparesis following cerebral infarction affecting right non-dominant side; E11.59 Type 2 diabetes mellitus with other circulatory complications; E78.00 Pure hypercholesterolemia, unspecified; I10 Essential (primary) hypertension; Z86.73 Personal history of transient ischemic attack (TIA), and cerebral infarction without residual deficits

== ENCOUNTER → 2025-05-04 12:44 | Outpatient (BNVA) | payer MEDICARE, MEDICAID, SELFPAY | PROVIDERS: PCP Physician Assistant Medical; Visit Provider Physician Assistant Medical | DX: Z13.89 Encounter for screening for other disorder (principal) ==

== ENCOUNTER 2025-05-04 12:53 | Outpatient (REF) | payer MEDICARE, MEDICAID, SELFPAY ==
[2025-05-04 14:25] LABS: MANUAL DIFF FLAG NO
[2025-05-04 14:34] LABS: Basophils Absolute Auto 0.1 X10*3/uL (0.0-0.2); Basophils Percent Auto 0.8 % (0-2); Eosinophils Absolute Auto 0.4 X10*3/uL (0.0-0.4); Eosinophils Percent Auto 6.1 % (0-4); Hemoglobin 11.6 g/dl (14.0-18.0); Imm Gran Abs Auto 0.01 X10*3/uL (0.00-0.03); Imm Gran Pct Auto 0.2 % (0.0-0.4); Lymphocytes Absolute Auto 2.4 X10*3/uL (1.2-4.9); Lymphocytes Percent Auto 38.6 % (20-40); Mean Corpuscular HGB Conc 31.4 g/dl (31.0-36.0); Mean Corpuscular Hemoglobin 22.1 pg (27.0-33.0); Mean Corpuscular Volume 70.3 fL (80.0-98.0); Mean Platelet Volume 11.1 fL (9.4-12.4); Monocytes Absolute Auto 0.5 X10*3/uL (0.1-1.2); Monocytes Percent Auto 8.5 % (2-11); Neutrophils Absolute Auto 2.9 x10*3/uL (2.0-8.3); Neutrophils Percent Auto 45.8 % (45-73); Platelet Count 266 X10*3/uL (160-400); Red Blood Count 5.26 X10*6/uL (4.60-5.80); White Blood Count 6.2 X10*3/uL (4.8-10.8)
[2025-05-04 14:51] LABS: Estimated Average Glucose 214 mg/dL; Hemoglobin A1c % 9.1 % (<6.0)
[2025-05-04 15:11] LABS: Alanine Aminotransferase 22 U/L (0-40); Albumin Level 3.7 g/dL (3.5-5.0); Alkaline Phosphatase 70 U/L (39-117); Anion Gap 11 (12-20); Aspartate Amino Transferase 32 U/L (5-37); Bilirubin Total 0.5 mg/dL (0.0-1.0); Blood Urea Nitrogen 11 mg/dL (9-16); Calcium 9.4 mg/dL (8.4-10.2); Carbon Dioxide 25 mmol/L (22-29); Chloride 104 mmol/L (96-108); Cholesterol 163 mg/dL (<200); Estimated Glomerular Filt Rate > 60; Glucose Random 266 mg/dL (60-115); HDL Cholesterol 35 mg/dL (>40); Iron 48 mcg/dL (45-160); LDL Cholesterol Calculated 98 mg/dL (<100); Percent Iron Saturation 14 % (15-50); Potassium 4.1 mmol/L (3.3-5.1); Sodium 136 mmol/L (135-145); Total Iron Binding Capacity 353 mcg/dL (228-428); Total Protein 7.2 g/dL (6.5-8.0); Triglycerides 154 mg/dL (<150); Unsaturated Iron Binding 305 ug/dL
[2025-05-04 15:36] LABS: Ferritin 14 ng/mL (20-250)
[2025-05-04 15:51] LABS: Folate 8.3 ng/mL (> or = 4.0); Vitamin B12 851 pg/mL (200-900)
== END 2025-05-04 12:54 | disposition home or self-care (01) ==
LOC: HO.WFDLDS 12:53
PROVIDERS: Referring Provider Nurse Practitioner Adult Health; Visit Provider Physician Assistant Medical
DX: I69.353 Hemiplegia and hemiparesis following cerebral infarction affecting right non-dominant side (principal); E78.00 Pure hypercholesterolemia, unspecified; I10 Essential (primary) hypertension; I48.0 Paroxysmal atrial fibrillation; E11.59 Type 2 diabetes mellitus with other circulatory complications; D64.9 Anemia, unspecified; Z79.4 Long term (current) use of insulin; Z79.899 Other long term (current) drug therapy
CPT/HCPCS: 36415; 80053; 80061; 82607; 82728; 82746; 83036; 83540; 85025; 99212

== ENCOUNTER 2025-06-15 13:11 | Outpatient (AMB) | payer MEDICARE, MEDICAID, SELFPAY ==
--- NOTE | 2025-06-15 13:12 | MHC.OFFVIS ---
Vital Signs 06/15/25 13:18 BMI Reason not done Patient refused/unable BP 126/84 Blood Pressure Location Lt brachial Position Sitting Pulse 64 Pulse Source Pulse Oximeter Pulse Oximetry (%) 99 Oxygen Delivery Method Room Air Intake Visit Reasons: T2DM Intake Note: Patient present today to follow up on Type 2 Diabetes Mellitus. Last seen by Helen Chauhan on 03/03/2025. Last Diabetic Eye exam: 2023 Last Podiatry Visit: Does not see a Fire Regulator Random Glucose: 234 mg/dl HgA1C: 9.1%, 05/04/2025. Inspector Receiving Required: No Accompanied by: Caregiver/Daughter, ISCH Worker Allergies No Known Allergies Allergy (Verified 06/15/25 13:19) Medication List - Last Reconciled 06/15/25 by Bennie Garrett MD alcohol swabs (Alcohol Wipes) 1 pad topical QID apixaban 5 mg PO BID arm brace (KASIA Elbow Brace) As directed aspirin 81 mg PO DAILY atorvastatin (AtorvaliQ) 40 mg (10 mL) PO DAILY 30 days bethanechol chloride 25 mg PO TID 90 days blood sugar diagnostic (FreeStyle Lite Strips) Use 1 strip as directed with glucometer to check blood glucose 3 times daily. blood-glucose meter (FreeStyle Lite Meter kit) As directed blood-glucose sensor (FreeStyle Reanna 3 Sensor device) for continuous glucose monitoring as pt is on lantus and lispro insulins blood-glucose,software test and validation engineer,cont (FreeStyle Reanna 3 [place]) As directed bolus insulin pump, 200 unit (CeQur Simplicity) As directed every 4 days diabetic supplies, miscellan. (CeQur Simplicity Cushion Padder) As directed diaper,brief,adult,disposable As directed disposable gloves (Disposable Latex-Free Gloves) As directed disposable gloves (Disposable Latex-Free Gloves) As directed famotidine (Pepcid AC) 20 mg PO BID ferrous sulfate 300 mg (5 mL) PO DAILY insulin aspart U-100 (Novolog FlexPen U-100 Insulin aspart) 1 sliding scale dose subcut USEASDIRECTD 30 days ketoconazole 2% 1 appl topical 3XW lancets (FreeStyle Lancets) As directed - 4 times per day leg brace As directed melatonin 6 mg (2 x 3 mg) PO BEDTIME 90 days metoprolol tartrate 50 mg PO QID 90 days miscellaneous medical supply 1 ea miscellaneous DAILY pen needle, diabetic (BD Ultra-Fine Short Pen Needle) As directed polyethylene glycol 3350 (Miralax) 17 grams PO DAILY sennosides (senna) 8.6 mg PO BEDTIME Tresiba FlexTouch U-100 (insulin degludec) 16 units (0.16 mL) subcut BEDTIME 30 days NS HPI Comments Details: 55 YO male who is seen in follow-up for T2DM. Pt was last seen by Helen Chowdhury NP on 03/03/25 History obtained by daughter, Patient is mainly non verbal s/p cva with dysphagia, hemiplegia and hemiparesis. He is in a wheel chair. Initially diagnosed with T2DM in [2020]. 08/2024 louisa antibodies negative islet cell antibody negative c peptide was ordered but not one by lab Was initially started on treatment with oral agents, daughter is not certain of which medications. Has been on insulin since approximately 2020. Current regimen Tresiba 16 units Novolog 08-20-12 Reanna download shows average glucose to be 147 with G mi of 6.8% and variability 25.9%. The Reanna is active 97% of the time. Target glucose is 83% with 17% hyperglycemia and no hypoglycemia Treats lows with [oj 1/2 glass]. [Checks] sugar after to ensure it is rising. [Treats] according to rule of 15's. Family history of T2DM: None in parents Has eyes checked yearly, last eye exam 10/2024 ], [not certain] retinopathy. Needs another appt Has neuropathy, does not see podiatry. No nephropathy: No micro albumin in EHR, eGFR>60 05/2024 Has HLD, on liquid statin Denies CAD. Had a stroke 4 years ago. Has been wheel chair bound since stroke, speech impaired, right arm lost mobility. Gets PT at home. OT at home. Denies alcohol/tobacco use Diet: oatmeal with fruit or egg sandwich, lunch sandwich or veg/protein (chicken or salmon) supper rice/veg/fish No added sugar small quantity juice Weight: Has been able to increase his weight since leaving prison two months ago. No diabetes education in the past. 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-dominant side Afib Hypertension Metabolic encephalopathy Diabetes type 2, controlled Insomnia Supraventricular tachycardia Cerebral infarction due to unspecified occlusion or stenosis of other cerebral artery Encounter for nasogastric (NG) tube placement Stroke Surgical History Gastrostomy status Family History Other No pertinent family history Social History (Updated 05/04/25 @ 13:55 by Mary Allison MA) Household Members: Spouse and Children Housing: House 75 years or older and lives alone: No Alcohol intake: never Patient Tobacco Use Status: Never used Tobacco e-Cigarette/Vaping Use: Never Used Advance Directives Date on File: 05/20/24 service: No Current occupational status: disabled Current occupational exposures/hazards: No Cognitive needs: Yes Hearing needs: No Vision needs: No Physical Exam Const Other: Absence of Cushingoid features. Absence of acromegalic features. Neck exam reveals nl size thyroid about 15 gms. No thyroid nodules palpable. Heart S1 S2, Reg R/R. No M/R G. Skin exam reveals absence of vitiligo or acanthosis nigricans. Aphasic. hemiplegia Foot exam no open wound Assessment & Plan Assessment & Plan (1) Type 2 diabetes mellitus with vascular disease: Code(s): E11.59 - Type 2 diabetes mellitus with other circulatory complications Category: Medical Plan: Is a 55-year-old black male with a history of type 2 diabetes being treated with basal-bolus insulin with excellent glycemic control and known macrovascular complications namely CVA and PVD Plan is to continue the current regimen. We will have patient follow up with primary care diabetes team in 4 months Orders: Referrals Podiatry Referral E11.59 - Type 2 diabetes mellitus with other circulatory complications Coding Level of Care Code Est Pt Level 4 (44594) Diagnoses Type 2 diabetes mellitus with vascular disease E11.59
[2025-06-15 13:18] VITALS: BP 126/84; PULSE 64; O2SAT 99
[2025-06-15 13:30] LABS: Glucose, Whole Blood 234 mg/dL (60-115)
== END 2025-06-15 13:40 | disposition home or self-care (01) ==
LOC: HO.ENCR 13:11
PROVIDERS: PCP Physician Assistant Medical; Visit Provider Internal Medicine Endocrinology, Diabetes & Metabolism
DX: E11.59 Type 2 diabetes mellitus with other circulatory complications (principal)
CPT/HCPCS: 99214

== ENCOUNTER → 2025-06-15 13:11 | Outpatient (BNVA) | payer MEDICARE, MEDICAID, SELFPAY | PROVIDERS: PCP Physician Assistant Medical; Visit Provider Internal Medicine Endocrinology, Diabetes & Metabolism | DX: E11.69 Type 2 diabetes mellitus with other specified complication (principal); Z79.4 Long term (current) use of insulin | CPT/HCPCS: 82947; 99212 ==

== ENCOUNTER 2025-06-28 14:28 | Outpatient (AMB) | payer MEDICARE, MEDICAID, SELFPAY ==
[2025-06-28 14:42] VITALS: BP 120/70; PULSE 53
--- NOTE | 2025-06-28 14:42 | A.OFFVIS_ITS ---
Vital Signs 06/28/25 14:42 Height 5 ft 5 in BP 120/70 Blood Pressure Location Lt brachial Position Sitting Pulse 53 Intake Visit Reasons: MENTAL HEALTH CONSULTANT/[place]/Aphasia Intake Note: New patient has history of afib per family was in the residential for about 3 years and is now home Process Planner Required: No Van Owner Operator: Van Owner Operator Present Accompanied by: daughter and HYDRO PLANT SITE MANAGER Allergies No Known Allergies Allergy (Verified 06/15/25 13:19) Medication List - Last Reconciled 06/28/25 by Fredrick Quinones MD alcohol swabs (Alcohol Wipes) 1 pad topical QID apixaban 5 mg PO BID arm brace (KASIA Elbow Brace) As directed aspirin 81 mg PO DAILY bethanechol chloride 25 mg PO TID 90 days blood sugar diagnostic (FreeStyle Lite Strips) Use 1 strip as directed with glucometer to check blood glucose 3 times daily. blood-glucose meter (FreeStyle Lite Meter kit) As directed blood-glucose sensor (AmberPointStyle Reanan 3 Sensor device) for continuous glucose monitoring as pt is on lantus and lispro insulins blood-glucose,glass wool blanket machine feeder,cont (FreeStyle Reanna 3 [place]) As directed bolus insulin pump, 200 unit (CeQur Simplicity) As directed every 4 days diabetic supplies, miscellan. (CeQur Simplicity Stone Grader) As directed diaper,brief,adult,disposable As directed disposable gloves (Disposable Latex-Free Gloves) As directed disposable gloves (Disposable Latex-Free Gloves) As directed famotidine (Pepcid AC) 20 mg PO BID ferrous sulfate 300 mg (5 mL) PO DAILY insulin aspart U-100 (Novolog FlexPen U-100 Insulin aspart) 1 sliding scale dose subcut USEASDIRECTD 30 days ketoconazole 2% 1 appl topical 3XW lancets (FreeStyle Lancets) As directed - 4 times per day leg brace As directed melatonin 6 mg (2 x 3 mg) PO BEDTIME 90 days metoprolol tartrate 50 mg PO QID 90 days miscellaneous medical supply 1 ea miscellaneous DAILY pen needle, diabetic (BD Ultra-Fine Short Pen Needle) As directed polyethylene glycol 3350 (Miralax) 17 grams PO DAILY sennosides (senna) 8.6 mg PO BEDTIME Tresiba FlexTouch U-100 (insulin degludec) 16 units (0.16 mL) subcut BEDTIME 30 days NS HPI Comments Details: Nahid was referred here because of his prior stroke and history of atrial fibrillation. Patient is aphasic and not able to provide much history. History was obtained from the daughter who also did not know the details of his history. Patient while leaving in [place] as per the daughter had a stroke about 5 years ago and subsequently was moved to rehab and was not cooperative are not taking his medication and then his sugar levels will pretty high. He subsequently as per the daughter at multiple other strokes. He has diagnose with atrial fibrillation while in [place], do not have any clear records. Since then he has been maintained on Eliquis and aspirin therapy. He was in the residential for 3 years and now subsequently he is living at home with HYDRO PLANT SITE MANAGER and daughter taking care of him. Patient can understand what I was telling him. When I asked him of any cardiac symptoms. He denied. Patient is currently taking Eliquis 5 mg b.i.d., aspirin as well as metoprolol. He is also on intense diuretic medications with insulin. As per the daughter he takes metoprolol in 3 times a day but she is not absolutely sure in his going to go home and check on it. He has no low blood pressure lightheadedness. He has pretty significant hemiplegia on the right with aphasia and is not able to do much activity. [facility] Medical History Mild anemia Pure hypercholesterolemia Paroxysmal atrial fibrillation Type 2 diabetes mellitus with vascular disease History of multiple cerebrovascular accidents (CVAs) Aphasia Abnormal posture Dysphagia, oropharyngeal phase Muscle weakness (generalized) Paralysis of vocal cords and larynx, unspecified Dysphasia following cerebral infarction Hemiplegia and hemiparesis following cerebral infarction affecting right non- dominant side Afib Hypertension Metabolic encephalopathy Diabetes type 2, controlled Insomnia Supraventricular tachycardia Cerebral infarction due to unspecified occlusion or stenosis of other cerebral artery Encounter for nasogastric (NG) tube placement Stroke Surgical History Gastrostomy status Family History Other No pertinent family history Social History Household Members: Spouse and Children Housing: House 75 years or older and lives alone: No Alcohol intake: never Patient Tobacco Use Status: Never used Tobacco e-Cigarette/Vaping Use: Never Used Advance Directives Date on File: 05/20/24 service: No Current occupational status: disabled Current occupational exposures/hazards: No Cognitive needs: Yes Hearing needs: No Vision needs: No Review of Systems Const Denies chills, Denies daytime sleepiness, Denies fatigue, Denies fever(s), Denies frequent falls, Denies poor appetite, Denies snoring, Denies stops breathing during sleep, Denies weakness, Denies weight gain and Denies weight loss Eyes Denies loss of vision ENT Denies dizziness and Denies hearing loss Card Denies chest pain, Denies claudication, Denies leg edema, Denies lightheadedness, Denies palpitations, Denies dyspnea, Denies dyspnea on exertion and Denies orthopnea Resp Denies cough, Denies excessive phlegm production, Denies dyspnea, Denies dyspnea on exertion, Denies snoring and Denies wheezing GI Denies abdominal pain, Denies hematochezia, Denies change in bowel habits, Denies nausea and Denies vomiting Denies dysuria and Denies urinary frequency Musc Denies arthralgias, Denies muscle weakness and Denies numbness Skin/Breast Denies nail changes and Denies rash Neuro Denies dizziness, Denies frequent falls, Denies loss of vision, Denies memory loss, Denies numbness and Denies weakness Psych Denies depression and Denies memory loss Endo Denies fatigue and Denies palpitations Moshe/Lymph Reports easy bruising and Reports other (anemia) Aller/Immun Denies wheezing Physical Exam Vital Signs: Last Vital Signs Pulse 53 06/28/25 14:42 BP 120/70 06/28/25 14:42 Const General: cooperative, comfortable, alert and awake Nutritional Appearance: average body habitus HEENT Head: Yes normocephalic and Yes atraumatic Neck Neck: Yes trachea midline, Yes supple and Yes no JVD Resp Effort & Inspection: normal respiratory effort Auscultation: no crackles, no wheezes and other (Coarse breath sounds) Cardio Jugular venous distension: no JVD Rate: bradycardic Rhythm: regular rhythm Heart sounds: S1 normal heart sound present, S2 normal heart sound present, no click, no gallops and no murmurs GI Auscultation: normal bowel sounds Skin General skin exam: no rashes or lesions noted Neuro General: other (Dense right hemiplegia with contracture of the right upper extremity) Speech: Expressive aphasia present Extrem General: Yes no clubbing, cyanosis or edema Office Procedures EKG Details: EKG shows sinus bradycardia with inferior and lateral ST T wave changes suggestive of repolarization abnormality [id number], Complete Assessment & Plan Assessment & Plan (1) Paroxysmal atrial fibrillation: Code(s): I48.0 - Paroxysmal atrial fibrillation Category: Medical Plan: Paroxysmal atrial fibrillation with reported atrial fibrillation episodes in the past when he had stroke as per the daughter while he was in [place]. Do not have the records. As the patient's daughter to obtain those records if possible. For now with a stroke and prior atrial fibrillation Eliquis as the right therapy to prevent future thromboembolic complication. He is also on aspirin therapy and not sure if he had recurrent TIA/stroke while on Eliquis therapy and was therefore prescribed aspirin therapy. This will need to be looked into as well. He says no clear indication for aspirin therapy dish should be stopped to reduce bleeding risk. Continue metoprolol therapy to reduce cardiac excitation. Currently maintaining sinus rhythm. He has no obvious cardiac symptoms at this point time. No further workup is indicated. Continue supportive care. Will follow up in the clinic if need be. Thank you for allowing me to partake in his care Coding Level of Care Code New Pt Level 4 (53110) Complex EM visit Add On G2211 Diagnoses Paroxysmal atrial fibrillation I48.0 CPT Codes EKG - CPT: 20915-Nswhgqvziycqfvleg, Complete ([id number])
== END 2025-06-28 15:27 | disposition home or self-care (01) ==
LOC: HO.HCS 14:29
PROVIDERS: PCP Physician Assistant Medical; Visit Provider Internal Medicine Cardiovascular Disease
DX: I48.0 Paroxysmal atrial fibrillation (principal)
CPT/HCPCS: 93010; 99204; G2211

== ENCOUNTER → 2025-06-28 14:28 | Outpatient (BNVA) | payer MEDICARE, MEDICAID, SELFPAY | PROVIDERS: PCP Physician Assistant Medical; Visit Provider Internal Medicine Cardiovascular Disease | DX: I48.0 Paroxysmal atrial fibrillation (principal); Z86.73 Personal history of transient ischemic attack (TIA), and cerebral infarction without residual deficits; Z79.82 Long term (current) use of aspirin | CPT/HCPCS: 93005; 99202 ==

== ENCOUNTER 2025-07-17 14:57 | Outpatient (AMB) | payer MEDICARE, MEDICAID, SELFPAY ==
--- NOTE | 2025-07-17 15:08 | MHC.OFFVIS ---
Vital Signs 07/17/25 15:09 Height 5 ft 5 in Weight 200 lb BMI 33.3 Intake Visit Reasons: New Pt- Diabetic Foot care Intake Note: Nahid is a 55 year old male who presents today as a new patient for an evaluation for diabetic foot care. Patient reports no tingling or numbness in his feet, Allergies No Known Allergies Allergy (Verified 07/17/25 15:11) Medication List - Last Reconciled 07/17/25 by Kristine Ricci DPM alcohol swabs (Alcohol Wipes) 1 pad topical QID apixaban 5 mg PO BID arm brace (KASIA Elbow Brace) As directed aspirin 81 mg PO DAILY bethanechol chloride 25 mg PO TID 90 days blood sugar diagnostic (FreeStyle Lite Strips) Use 1 strip as directed with glucometer to check blood glucose 3 times daily. blood-glucose meter (FreeStyle Lite Meter kit) As directed blood-glucose sensor (Advanced LEDsStyle Reanna 3 Sensor device) for continuous glucose monitoring as pt is on lantus and lispro insulins blood-glucose,student success advisor,cont (FreeStyle Reanna 3 [place]) As directed bolus insulin pump, 200 unit (CeQur Simplicity) As directed every 4 days clotrimazole 1% (Antifungal (clotrimazole)) 1 appl topical BID diabetic supplies, miscellan. (CeQur Simplicity Editor Publications) As directed diaper,brief,adult,disposable As directed disposable gloves (Disposable Latex-Free Gloves) As directed disposable gloves (Disposable Latex-Free Gloves) As directed famotidine (Pepcid AC) 20 mg PO BID ferrous sulfate 300 mg (5 mL) PO DAILY insulin aspart U-100 (Novolog FlexPen U-100 Insulin aspart) 1 sliding scale dose subcut USEASDIRECTD 30 days ketoconazole 2% 1 appl topical 3XW lancets (FreeStyle Lancets) As directed - 4 times per day leg brace As directed melatonin 6 mg (2 x 3 mg) PO BEDTIME 90 days metoprolol tartrate 50 mg PO QID 90 days miscellaneous medical supply 1 ea miscellaneous DAILY pen needle, diabetic (BD Ultra-Fine Short Pen Needle) As directed polyethylene glycol 3350 (Miralax) 17 grams PO DAILY sennosides (senna) 8.6 mg PO BEDTIME Tresiba FlexTouch U-100 (insulin degludec) 16 units (0.16 mL) subcut BEDTIME 30 days NS HPI Comments Details: This patient is a 55-year-old male with a past medical history as seen below who presents to the office for diabetic foot care. Patient was accompanied by his guardian/SUBSTATION OPERATOR AUTOMATIC. Patient is hemiplegic after stroke and is unable to adequately provide a history or verbalize symptoms. Patient and his SUBSTATION OPERATOR AUTOMATIC states that he has been experiencing some itching to the plantar aspects of the feet which has been happening recently. His SUBSTATION OPERATOR AUTOMATIC states his most recent blood glucose is 150 and his A1c is 9.1. Patient is unable to ambulate and is currently in a wheelchair. Patient and his SUBSTATION OPERATOR AUTOMATIC denied any numbness and tingling. Denies any other pedal concerns. Denies any current nausea vomiting fever or chills. [facility] Medical History (Updated 07/17/25 @ 18:44 by Kristine Ricci DPM) Peripheral vascular disease Tinea pedis Nail dystrophy Onychogryphosis Onychomycosis Mild anemia Pure hypercholesterolemia Paroxysmal atrial fibrillation Type 2 diabetes mellitus with vascular disease History of multiple cerebrovascular accidents (CVAs) Aphasia Abnormal posture Dysphagia, oropharyngeal phase Muscle weakness (generalized) Paralysis of vocal cords and larynx, unspecified Dysphasia following cerebral infarction Hemiplegia and hemiparesis following cerebral infarction affecting right non-dominant side Afib Hypertension Metabolic encephalopathy Diabetes type 2, controlled Insomnia Supraventricular tachycardia Cerebral infarction due to unspecified occlusion or stenosis of other cerebral artery Encounter for nasogastric (NG) tube placement Stroke Surgical History Gastrostomy status Family History Other No pertinent family history Social History Household Members: Spouse and Children Housing: House 75 years or older and lives alone: No Alcohol intake: never Patient Tobacco Use Status: Never used Tobacco e-Cigarette/Vaping Use: Never Used Advance Directives Date on File: 05/20/24 service: No Current occupational status: disabled Current occupational exposures/hazards: No Cognitive needs: Yes Hearing needs: No Vision needs: No Review of Systems Const All systems reviewed & are unremarkable except as noted in HPI and below Physical Exam Vital Signs: BMI result Body Mass Index 33.3 Extrem Other: Bilateral lower extremity focused physical exam: Derm: Toenails noted to be elongated thickened and dystrophic with subungual debris noted. There is incurvation noted to toenails x10. No open lesions abrasions or wounds noted. Xerosis noted to the feet. No clinical signs of infection. No edema or erythema noted. Vascular: DP/PT pulses nonpalpable. Capillary refill time greater than 3 seconds. Temperature gradient warm to cold. Pedal hair absent. Neuro: Protective sensations grossly diminished. Unable to do a full exam due to patient's inability to fully verbalize. Musculoskeletal: Hemiplegia noted to the right side. MMT on the right 0-5. MMT on the left 2/5. No pain on palpation to the feet or legs. Patient currently in a wheelchair. Office Procedures AMB Debridement/Avulsion Podia Details: Debrided toenails x10 using a nail Nipper without any incidents. [id number]-[id number] of Nail 6+ Procedure code (CPT) selection complete Results Reviewed Results Reviewed: Patient's A1c is 9.1. Patient's most recent blood glucose is 150. Assessment & Plan Assessment & Plan (1) Type 2 diabetes mellitus with vascular disease: Code(s): E11.59 - Type 2 diabetes mellitus with other circulatory complications Category: Medical (2) Onychomycosis: Code(s): B35.1 - Tinea unguium Category: Medical (3) Onychogryphosis: Code(s): L60.2 - Onychogryphosis Category: Medical (4) Nail dystrophy: Code(s): L60.3 - Nail dystrophy Category: Medical (5) Tinea pedis: Code(s): B35.3 - Tinea pedis Category: Medical (6) Peripheral vascular disease: Code(s): I73.9 - Peripheral vascular disease, unspecified Category: Medical (7) Hemiplegia and hemiparesis following cerebral infarction affecting right non-dominant side: Code(s): I69.353 - Hemiplegia and hemiparesis following cerebral infarction affecting right non-dominant side Category: Medical (8) History of multiple cerebrovascular accidents (CVAs): Code(s): Z86.73 - Personal history of transient ischemic attack (TIA), and cerebral infarction without residual deficits Category: Medical Plan Discussed with patient and SUBSTATION OPERATOR AUTOMATIC diagnosis of onychomycosis. At this time recommend routine nail care due to diabetes, peripheral vascular disease, and hemiplegia. Debrided toenails x10 using a nail Nipper with no incidents. Discussed with patient and SUBSTATION OPERATOR AUTOMATIC importance of monitoring feet daily to ensure no wounds arise. Provided diabetic foot education. Discussed peripheral vascular disease diagnosis. Discussed with patient and SUBSTATION OPERATOR AUTOMATIC diagnosis of tinea pedis. Prescribed clotrimazole cream to be applied to the feet daily. Patient is to return to the office in 9 weeks for continued routine nail care and diabetic foot evaluation. Orders: Orders AMB Debridement/Avulsion Podiatry Today B35.1 - Tinea unguium, E11.59 - Type 2 diabetes mellitus with other circulatory complications, L60.2 - Onychogryphosis, L60.3 - Nail dystrophy Medications: New clotrimazole 1% (Antifungal (clotrimazole)) 1 appl topical BID 30 grams 0RF Tinea pedis B35.3 - Tinea pedis Coding Level of Care Code New Pt Level 3 (13751) Diagnoses Type 2 diabetes mellitus with vascular disease E11.59 Onychomycosis B35.1 Onychogryphosis L60.2 Nail dystrophy L60.3 Tinea pedis B35.3 Peripheral vascular disease I73.9 Hemiplegia and hemiparesis following cerebral infarction affecting right non-dominant side I69.353 History of multiple cerebrovascular accidents (CVAs) Z86.73 CPT Codes Skin Debridement - CPT: 31542-Uibgdkzjhsz of Nail 6+ ([id number]) Time Spent (min) 30
[2025-07-17 15:09] VITALS: BMI 33.3
== END 2025-07-17 15:39 | disposition home or self-care (01) ==
LOC: HO.HPODS 14:58
PROVIDERS: PCP Physician Assistant Medical; Visit Provider Student in an Organized Health Care Education/Training Program
DX: L60.3 Nail dystrophy (principal); E11.59 Type 2 diabetes mellitus with other circulatory complications; B35.1 Tinea unguium; L60.2 Onychogryphosis; B35.3 Tinea pedis; I73.9 Peripheral vascular disease, unspecified; I69.353 Hemiplegia and hemiparesis following cerebral infarction affecting right non-dominant side; Z86.73 Personal history of transient ischemic attack (TIA), and cerebral infarction without residual deficits
CPT/HCPCS: 11721; 99203

== ENCOUNTER → 2025-07-17 14:57 | Outpatient (BNVA) | payer MEDICARE, MEDICAID, SELFPAY | PROVIDERS: PCP Physician Assistant Medical; Visit Provider Student in an Organized Health Care Education/Training Program | DX: B35.1 Tinea unguium (principal); L60.2 Onychogryphosis; L60.3 Nail dystrophy; B35.3 Tinea pedis; E11.59 Type 2 diabetes mellitus with other circulatory complications; E11.51 Type 2 diabetes mellitus with diabetic peripheral angiopathy without gangrene; I73.9 Peripheral vascular disease, unspecified; I69.353 Hemiplegia and hemiparesis following cerebral infarction affecting right non-dominant side | CPT/HCPCS: 11721; 99202 ==

== ENCOUNTER 2025-09-28 14:11 | Outpatient (AMB) | payer MEDICARE, MEDICAID, SELFPAY ==
--- NOTE | 2025-09-28 14:24 | MHC.PC.OV ---
Vital Signs 09/28/25 14:31 09/28/25 15:09 Height 5 ft 5 in BMI Reason not done Patient refused/unable BP 124/70 Blood Pressure Location Lt brachial Position Sitting Pulse 74 Pulse Source Pulse Oximeter Temp 98.5 F Temp Source Temporal Artery Scan Pulse Oximetry (%) 94 98 Oxygen Delivery Method Room Air Intake Visit Reasons: 30 min complex follow up Intake Note: Nahid presents in the office today for a follow up to diabetes and other chronic conditions. Patient needs Famotadine Rx. Allergies No Known Allergies Allergy (Verified 09/28/25 14:29) Tobacco use date assessed: 09/28/25 Dental Screening Dental Screen Date: 09/28/25 Did you have a dental visit in the last 12 months?: No Did you have a dental problem in the last 6 months where you did not have access to dental care?: No Was dental information given to patient?: Patient declined HPI HPI Comments History of Present Illness Details This is a 55-year-old male with a past medical history of multiple CVAs with residual right-sided weakness, aphasia, memory impairment, atrial fibrillation, hypertension, hyperlipidemia and type 2 diabetes presenting for follow up. He is accompanied by his daughter, Susan. The patient is mostly aphasic. Patient is wheelchair bound. Susan has decreased her caretaking hours. Patient has caretakers from [employer] and a visiting nurse every Thursday. Jason Suero RN is his rehabilitation case coordinator. Patient is followed by endocrinology. He was diagnosed with type 2 diabetes when he was hospitalized in 2019. Eye exam is up-to-date. Susan reports no ocular manifestations of diabetes. Patient currently taking Tresiba 18 daily and Novolog 10 units before breakfast and 12 units before lunch and dinner. Hemoglobin A1c 8.1% today down from 9.1%. Does not have phone with them today. He has a back up glucometer. They report he is getting lows in the morning at 18 units twice per week, but with 16 units he was having highs in the morning. He will try 17 units Tresiba in the evening. Sees podiatry every 9 weeks. Patient had a CVA in 2019 resulting in residual right-sided weakness, memory impairment, aphasia and dysphagia. He had a G-tube and was slowly advanced, and now he eats a normal diet. Underwent modified barium swallow study within the past year. He was hospitalized again at [facility] in early 2022 for ?multiple small strokes. ? He was then discharged to [facility] where he resided until he moved to [place], [place] in April 2024 to join his and daughter. Susan is his REFRACTORY GRINDER OPERATOR, and she manages his medications. Patient is a nonsmoker. He only drank alcohol occasionally prior to the strokes. Patient currently on Eliquis, aspirin, atorvastatin, metoprolol. LDL 69 with a goal of less than 70. He saw Dr. Quinones, and he was instructed to follow up if need be. Atorvaliq prior authorization so he has been out of the medication. Declines flu vaccine. ROS: Unable to obtain ROS due to cognitive impairment/nonverbal patient. Physical exam: Constitutional: Alert, seated in wheelchair Head: Normocephalic. Neck: Supple, Full range of motion. No lymphadenopathy. Respiratory: Clear to auscultation. Cardiovascular: S1 S2 regular. II/ systolic murmur. Neurologic: Right sided weakness. Nonverbal. Skin: No rashes Extremities: Warm and well perfused. No clubbing, cyanosis or edema. [facility] Medical History (Updated 07/17/25 @ 18:44 by Kristine Ricci DPM) Peripheral vascular disease Tinea pedis Nail dystrophy Onychogryphosis Onychomycosis Mild anemia Pure hypercholesterolemia Paroxysmal atrial fibrillation Type 2 diabetes mellitus with vascular disease History of multiple cerebrovascular accidents (CVAs) Aphasia Abnormal posture Dysphagia, oropharyngeal phase Muscle weakness (generalized) Paralysis of vocal cords and larynx, unspecified Dysphasia following cerebral infarction Hemiplegia and hemiparesis following cerebral infarction affecting right non-dominant side Afib Hypertension Metabolic encephalopathy Diabetes type 2, controlled Insomnia Supraventricular tachycardia Cerebral infarction due to unspecified occlusion or stenosis of other cerebral artery Encounter for nasogastric (NG) tube placement Stroke Surgical History Gastrostomy status Family History (Updated 09/28/25 @ 14:31 by Mary Allison CMA) Sister FH: mental illness Other No pertinent family history Social History (Updated 09/28/25 @ 14:31 by Mary Allison CMA) Household Members: Spouse and Children Housing: House 75 years or older and lives alone: No Alcohol intake: never Patient Tobacco Use Status: Never used Tobacco e-Cigarette/Vaping Use: Never Used Second Hand Smoke Exposure: No Advance Directives Date on File: 05/20/24 service: No Current occupational status: disabled Current occupational exposures/hazards: No Cognitive needs: Yes Hearing needs: No Vision needs: No Questionnaire Thrive Questionnaire Date Thrive assessed: 12/02/24 I am a: Parent/Caregiver What is your living situation today?: I have a steady place to live Within the past 12 months, did the food you bought not last and you didn't have the money to get more?: Sometimes True Within the past 12 months, did you worry whether your food would run out before you got money to buy more?: Sometimes True Do you have trouble paying for medicines?: Yes Do you have trouble getting transportation to medical appointments?: No Do you have trouble paying your heating and electricity bill?: Yes Do you have trouble taking care of your child, family member or friend?: No Do you have trouble with day-to-day activities such as bathing, preparing meals, shopping, managing finances, etc.?: No Are you currently unemployed and looking for a job?: I choose not to answer this question Are you interested in more education?: I choose not to answer this question Currently or been in a relationship where the following occur: No concerns reported THRIVE Score: 3 LIZZIE-7 AMB Questionnaire LIZZIE-7 Date LIZZIE - 7 assessed: 05/20/24 Source: Developed by Drs. Bennie Nunez, Torri Cisneros, Les Sanches and colleagues, with an educational tish from [email or web address]. Physical exam (Primary Care) Vital Signs: Last Vital Signs Temp 98.5 F 09/28/25 14:31 Pulse 74 09/28/25 14:31 BP 124/70 09/28/25 14:31 Pulse Ox 98 09/28/25 15:09 Oxygen Delivery Method Room Air 09/28/25 14:31 Tobacco/Smoking Status: Tobacco use Status Tobacco use date assessed 09/28/25 09/28/25 14:35 Patient Tobacco Use Status Never used Tobacco 09/28/25 14:31 e-Cigarette/Vaping Use Never Used 09/28/25 14:31 Thrive Assessment: Date of Thrive Assessment Date Thrive assessed 12/02/24 09/28/25 14:26 Currently or been in a relationship where the following occur: No concerns reported Results AMB Hemoglobin A1c AMB Hemoglobin A1c 8.1 % Last Edit by Mary Allison CMA on 09/28/25 14:37 Results Reviewed Results Reviewed: Laboratory Last Values Hgb A1c (Clinic) 8.1 % (4.0-6.0) H 09/28/25 14:36 Coding Level of Care Code Est Pt Level 4 (71909) Diagnoses Hemiplegia and hemiparesis following cerebral infarction affecting right non-dominant side I69.353 Pure hypercholesterolemia E78.00 Primary hypertension I10 Hypertension type: primary hypertension Paroxysmal atrial fibrillation I48.0 Type 2 diabetes mellitus with vascular disease E11.59 History of multiple cerebrovascular accidents (CVAs) Z86.73 Assessment & Plan Assessment & Plan (1) Hemiplegia and hemiparesis following cerebral infarction affecting right non-dominant side: Code(s): I69.353 - Hemiplegia and hemiparesis following cerebral infarction affecting right non-dominant side Category: Medical (2) Pure hypercholesterolemia: Code(s): E78.00 - Pure hypercholesterolemia, unspecified Category: Medical (3) Hypertension: Code(s): I10 - Essential (primary) hypertension Category: Medical Qualifiers: Hypertension type: primary hypertension Qualified Code(s): I10 - Essential (primary) hypertension (4) Paroxysmal atrial fibrillation: Code(s): I48.0 - Paroxysmal atrial fibrillation Category: Medical (5) Type 2 diabetes mellitus with vascular disease: Code(s): E11.59 - Type 2 diabetes mellitus with other circulatory complications Category: Medical (6) History of multiple cerebrovascular accidents (CVAs): Code(s): Z86.73 - Personal history of transient ischemic attack (TIA), and cerebral infarction without residual deficits Category: Medical Plan Continue current medications for hypertension and hyperlipidemia. We will do the PA for Atorvaliq. He has been out of the medication so I did not order a lipid panel at this time. Currently suboptimal control of type 2 diabetes. Did not have CGM or glucometer today. We will reduce Tresiba 17 units given fasting hypoglycemia. Continue NovoLog same doses. Reports eye exam is up-to-date. Continue podiatry follow up every 9 weeks. Sent message to have endocrinology follow up in October. Continue famotidine twice daily. He has a cough after meals and throat clearing. He underwent barium swallow study. Seen by cardiology. Continue Eliquis and aspirin. There was some question as to whether or not he should be on aspirin with the Eliquis due to bleeding risk. His daughter was not sure if it was added because he had breakthrough strokes on Eliquis alone. She has the records, and she said she will get them to this office. He has mild anemia in his on an iron supplement. Recheck labs. Follow up in 3 months. Orders: Orders Complete Blood Count Auto Diff Today D64.9 - Anemia, unspecified, E11.59 - Type 2 diabetes mellitus with other circulatory complications, E78.00 - Pure hypercholesterolemia, unspecified, I10 - Essential (primary) hypertension Ferritin Today D64.9 - Anemia, unspecified, E11.59 - Type 2 diabetes mellitus with other circulatory complications, E78.00 - Pure hypercholesterolemia, unspecified, I10 - Essential (primary) hypertension Vitamin D 25-OH (D2 and D3) Today D64.9 - Anemia, unspecified, E11.59 - Type 2 diabetes mellitus with other circulatory complications, E78.00 - Pure hypercholesterolemia, unspecified, I10 - Essential (primary) hypertension AMB Hemoglobin A1c Today E11.59 - Type 2 diabetes mellitus with other circulatory complications Comprehensive Met. Panel Today D64.9 - Anemia, unspecified, E11.59 - Type 2 diabetes mellitus with other circulatory complications, E78.00 - Pure hypercholesterolemia, unspecified, I10 - Essential (primary) hypertension IRON PROFILE Today D64.9 - Anemia, unspecified, E11.59 - Type 2 diabetes mellitus with other circulatory complications, E78.00 - Pure hypercholesterolemia, unspecified, I10 - Essential (primary) hypertension Vitamin B12 and Folate Today D64.9 - Anemia, unspecified, E11.59 - Type 2 diabetes mellitus with other circulatory complications, E78.00 - Pure hypercholesterolemia, unspecified, I10 - Essential (primary) hypertension Medications: Changed From famotidine (Pepcid AC) 20 mg PO BID 60 tabs 3RF To famotidine (Pepcid AC) 20 mg PO BID 180 tabs 3RF 90 days Refilled atorvastatin (AtorvaliQ) administer on an empty stomach, at least 1 hour before or 2 hours after food/meal(s) 40 mg (10 mL) PO DAILY 300 mL 11RF 30 days
[2025-09-28 14:31] VITALS: BP 124/70; PULSE 74; TEMP 36.9; O2SAT 94
[2025-09-28 15:09] VITALS: O2SAT 98
== END 2025-09-28 15:05 | disposition home or self-care (01) ==
LOC: HO.HMCFM 14:12
PROVIDERS: PCP Physician Assistant Medical; Visit Provider Physician Assistant Medical
DX: I69.353 Hemiplegia and hemiparesis following cerebral infarction affecting right non-dominant side (principal); E11.59 Type 2 diabetes mellitus with other circulatory complications; I48.0 Paroxysmal atrial fibrillation; I10 Essential (primary) hypertension; E78.00 Pure hypercholesterolemia, unspecified; Z86.73 Personal history of transient ischemic attack (TIA), and cerebral infarction without residual deficits

== ENCOUNTER → 2025-09-28 14:11 | Outpatient (BNVA) | payer MEDICARE, MEDICAID, SELFPAY | PROVIDERS: PCP Physician Assistant Medical; Visit Provider Physician Assistant Medical | DX: E11.59 Type 2 diabetes mellitus with other circulatory complications (principal); I10 Essential (primary) hypertension; E78.00 Pure hypercholesterolemia, unspecified; I48.0 Paroxysmal atrial fibrillation; D64.9 Anemia, unspecified; I69.353 Hemiplegia and hemiparesis following cerebral infarction affecting right non-dominant side; Z99.3 Dependence on wheelchair; Z79.4 Long term (current) use of insulin; Z79.01 Long term (current) use of anticoagulants | CPT/HCPCS: 83036; 99212 ==

== ENCOUNTER 2025-09-29 10:12 | Outpatient (AMB) | payer MEDICARE, MEDICAID, SELFPAY ==
--- NOTE | 2025-09-29 10:24 | MHC.OFFVIS ---
Vital Signs 09/29/25 13:29 Height 5 ft 5 in Weight 200 lb BMI 33.3 Intake Visit Reasons: Follow Up Diabetic Foot care Intake Note: Nahid is a 55 year old male who presents today for a follow up on his onychomycosis. At his last visit his toe nails where debrided and clotrimazole was prescribed for his athletes foot. Patients daughter reports everything is going well and they have no concerns at this time. Allergies No Known Allergies Allergy (Verified 09/29/25 13:29) HPI Comments Details: The patient is a 55-year-old male presenting for routine diabetic nail care. The patient was accompanied by his education and outreach coordinator who states his blood glucose has recently been elevated but is being managed with insulin. There have been no new injuries to the legs, and the patient's previous pruritus of the feet has resolved since using the Clotrimazole cream. The healthcare recruiter states there are no other pedal concerns. Denies any current nausea vomiting fever or chills. [facility] Medical History (Updated 10/02/25 @ 09:41 by Kristine Ricci DPM) Nail disorder Peripheral vascular disease Tinea pedis Nail dystrophy Onychogryphosis Onychomycosis Mild anemia Pure hypercholesterolemia Paroxysmal atrial fibrillation Type 2 diabetes mellitus with vascular disease History of multiple cerebrovascular accidents (CVAs) Aphasia Abnormal posture Dysphagia, oropharyngeal phase Muscle weakness (generalized) Paralysis of vocal cords and larynx, unspecified Dysphasia following cerebral infarction Hemiplegia and hemiparesis following cerebral infarction affecting right non-dominant side Afib Hypertension Metabolic encephalopathy Diabetes type 2, controlled Insomnia Supraventricular tachycardia Cerebral infarction due to unspecified occlusion or stenosis of other cerebral artery Encounter for nasogastric (NG) tube placement Stroke Surgical History Gastrostomy status Family History (Updated 09/28/25 @ 14:31 by Mary Allison CMA) Sister FH: mental illness Other No pertinent family history Social History (Updated 09/28/25 @ 14:31 by Mary Allison CMA) Household Members: Spouse and Children Housing: House 75 years or older and lives alone: No Alcohol intake: never Patient Tobacco Use Status: Never used Tobacco e-Cigarette/Vaping Use: Never Used Second Hand Smoke Exposure: No Advance Directives Date on File: 05/20/24 service: No Current occupational status: disabled Current occupational exposures/hazards: No Cognitive needs: Yes Hearing needs: No Vision needs: No Review of Systems Const Details: - Endocrine: Reports elevated blood sugar levels managed with insulin. - Dermatological: Denies current pruritus of the foot. Reports thickened, elongated, dystrophic, nails x10. All systems reviewed & are unremarkable except as noted in HPI and below Physical Exam Vital Signs: BMI result Body Mass Index 33.3 Extrem Other: Bilateral lower extremity focused physical exam: Derm: Toenails x10 noted to be elongated, thickened, and dystrophic with subungual debris noted. There is incurvation noted to toenails x10. No open lesions abrasions or wounds noted. Xerosis noted to the feet. No clinical signs of infection. No edema or erythema noted. Vascular: DP/PT pulses nonpalpable. Capillary refill time greater than 3 seconds. Temperature gradient warm to cold. Pedal hair absent. Neuro: Protective sensations grossly diminished. Unable to do a full exam due to patient's inability to fully verbalize. Musculoskeletal: Hemiplegia noted to the right side. MMT on the right 0-5. MMT on the left 2/5. No pain on palpation to the feet or legs. Patient currently in a wheelchair. Class B and C findings. Office Procedures AMB Debridement/Avulsion Podia Details: Debrided toenails x10 using sterile nail nippers with no incidents. [id number] of Nail 6+ Procedure code (CPT) selection complete Results Reviewed Results Reviewed: Patient's A1c is 9.1. Patient's most recent blood glucose levels have been in the 300's. Assessment & Plan Assessment & Plan (1) Type 2 diabetes mellitus with vascular disease: Code(s): E11.59 - Type 2 diabetes mellitus with other circulatory complications Category: Medical (2) Onychomycosis: Code(s): B35.1 - Tinea unguium Category: Medical (3) Onychogryphosis: Code(s): L60.2 - Onychogryphosis Category: Medical (4) Nail dystrophy: Code(s): L60.3 - Nail dystrophy Category: Medical (5) Tinea pedis: Code(s): B35.3 - Tinea pedis Category: Medical (6) Peripheral vascular disease: Code(s): I73.9 - Peripheral vascular disease, unspecified Category: Medical (7) Hemiplegia and hemiparesis following cerebral infarction affecting right non-dominant side: Code(s): I69.353 - Hemiplegia and hemiparesis following cerebral infarction affecting right non-dominant side Category: Medical (8) History of multiple cerebrovascular accidents (CVAs): Code(s): Z86.73 - Personal history of transient ischemic attack (TIA), and cerebral infarction without residual deficits Category: Medical (9) Nail disorder: Code(s): L60.9 - Nail disorder, unspecified Category: Medical Plan Patient was informed and verbally consented to the use of an ambient scribe for clinic note documentation during this visit. I discussed with the patient and his healthcare recruiter the importance of continuing insulin therapy to manage blood sugar levels effectively. We also talked about monitoring for any recurrence of foot pruritus and using the prescribed topical treatment if symptoms return. The patient's education and outreach coordinator was advised to contact us for a refill if needed and to return in nine weeks for routine nail care. - Debrided toenails x10. - Continue insulin therapy to manage blood sugar levels as per PCP. - Monitor for recurrence of pruritus and use topical treatment if necessary. - Wear supportive shoe gear. - Monitor feet daily. RTC in 9 weeks. Orders: Orders AMB Debridement/Avulsion Podiatry Today B35.1 - Tinea unguium, E11.59 - Type 2 diabetes mellitus with other circulatory complications, I69.353 - Hemiplegia and hemiparesis following cerebral infarction affecting right non-dominant side, I73.9 - Peripheral vascular disease, unspecified, L60.3 - Nail dystrophy, L60.9 - Nail disorder, unspecified, Z86.73 - Personal history of transient ischemic attack (TIA), and cerebral infarction without residual deficits Coding Level of Care Code Est Pt Level 3 (34033) Diagnoses Type 2 diabetes mellitus with vascular disease E11.59 Onychomycosis B35.1 Onychogryphosis L60.2 Nail dystrophy L60.3 Tinea pedis B35.3 Peripheral vascular disease I73.9 Hemiplegia and hemiparesis following cerebral infarction affecting right non-dominant side I69.353 History of multiple cerebrovascular accidents (CVAs) Z86.73 Nail disorder L60.9 CPT Codes Skin Debridement - CPT: 86273-[place]ds[place] of Nail 6+ ([id number]) Time Spent (min) 30 Comment 8 mins for procedure
[2025-09-29 13:29] VITALS: BMI 33.3
== END 2025-09-29 10:39 | disposition home or self-care (01) ==
LOC: HO.HPODS 10:13
PROVIDERS: PCP Physician Assistant Medical; Visit Provider Student in an Organized Health Care Education/Training Program
DX: E11.59 Type 2 diabetes mellitus with other circulatory complications (principal); B35.1 Tinea unguium; L60.2 Onychogryphosis; L60.3 Nail dystrophy; B35.3 Tinea pedis; I73.9 Peripheral vascular disease, unspecified; I69.353 Hemiplegia and hemiparesis following cerebral infarction affecting right non-dominant side; Z86.73 Personal history of transient ischemic attack (TIA), and cerebral infarction without residual deficits; L60.9 Nail disorder, unspecified
CPT/HCPCS: 11721; 99213

== ENCOUNTER → 2025-09-29 10:12 | Outpatient (BNVA) | payer MEDICARE, MEDICAID, SELFPAY | PROVIDERS: PCP Physician Assistant Medical; Visit Provider Student in an Organized Health Care Education/Training Program | DX: E11.59 Type 2 diabetes mellitus with other circulatory complications (principal); B35.1 Tinea unguium; L60.2 Onychogryphosis; L60.3 Nail dystrophy; B35.3 Tinea pedis; I73.9 Peripheral vascular disease, unspecified; I69.353 Hemiplegia and hemiparesis following cerebral infarction affecting right non-dominant side; L60.9 Nail disorder, unspecified | CPT/HCPCS: 11721; 99212 ==

== ENCOUNTER 2025-10-20 13:10 | Outpatient (AMB) | payer MEDICARE, MEDICAID, SELFPAY ==
[2025-10-20 13:12] VITALS: BP 102/64; PULSE 60; O2SAT 97
--- NOTE | 2025-10-20 13:12 | MHC.OFFVIS ---
Vital Signs 10/20/25 13:12 Height 5 ft 5 in BP 102/64 Blood Pressure Location Lt brachial Position Sitting Pulse 60 Pulse Source Pulse Oximeter Pulse Oximetry (%) 97 Oxygen Delivery Method Room Air Intake Visit Reasons: f/u Type 2 DM with primary care diabetes team Intake Note: Patient present today for Type 2 Diabetes Mellitus Last Diabetic eye exam: Last exam was in 10/2024 Last Podiatry Visit: Last visit was in 09/2025 Random Glucose: 255 mg/dl HgA1C: 8.1% 09/28/25 Well Blower Required: No Accompanied by: Daughter Allergies No Known Allergies Allergy (Verified 10/20/25 13:19) Medication List - Last Reconciled 10/20/25 by Catia Xiao PA-C alcohol swabs (Alcohol Wipes) 1 pad topical QID apixaban (Eliquis) 5 mg PO BID arm brace (KASIA Elbow Brace) As directed aspirin 81 mg PO DAILY atorvastatin (AtorvaliQ) 40 mg (10 mL) PO DAILY 30 days bethanechol chloride 25 mg PO TID blood sugar diagnostic (FreeStyle Lite Strips) Use 1 strip as directed with glucometer to check blood glucose 3 times daily. 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 (CeQur Simplicity [employer] Inspector) As directed diaper,brief,adult,disposable As directed disposable gloves (Disposable Latex-Free Gloves) As directed disposable gloves (Disposable Latex-Free Gloves) As directed dulaglutide (Trulicity) 0.75 mg (0.5 mL) subcut QWEEK famotidine (Pepcid AC) 20 mg PO BID 90 days ferrous sulfate 300 mg (5 mL) PO DAILY insulin aspart U-100 (Novolog FlexPen U-100 Insulin aspart) 1 sliding scale dose subcut USEASDIRECTD 30 days insulin degludec (Tresiba FlexTouch U-100 insulin) 17 units subcut BEDTIME ketoconazole 2% 1 appl topical 3XW lancets (FreeStyle Lancets) As directed - 4 times per day leg brace As directed melatonin 6 mg (2 x 3 mg) PO BEDTIME 90 days metoprolol tartrate 50 mg PO QID 90 days miscellaneous medical supply 1 ea miscellaneous DAILY pen needle, diabetic (BD Ultra-Fine Short Pen Needle) As directed polyethylene glycol 3350 (Miralax) 17 grams PO DAILY sennosides (senna) 8.6 mg PO BEDTIME HPI HPI f/u Type 2 DM with primary care diabetes team: Details: 55 YO male who is seen in follow-up for T2DM. Pt was last seen by Helen Chowdhury NP on 03/03/25 History obtained by daughter, Patient is mainly non verbal s/p cva with dysphagia, hemiplegia and hemiparesis. He is in a wheel chair. Initially diagnosed with T2DM in 08/2024 louisa antibodies negative islet cell antibody negative c peptide was ordered but not done by lab Was initially started on treatment with oral agents, daughter is not certain of which medications. Has been on insulin since approximately 2020. Current regimen Tresiba 17 units Novolog 08-20-12 Reanna download shows average glucose to be 23with G mi of 9% and variability 25.9%. The Reanna is active 97% of the time. Target glucose is 27% with 73% hyperglycemia and no hypoglycemia Treats lows with oj 1/2 glass. Checks sugar after to ensure it is rising. treats according to rule of 15's. Family history of T2DM: None in parents Has eyes checked yearly, last eye exam 10/2024 Has neuropathy, does not see podiatry. No nephropathy: No micro albumin in EHR, eGFR>60 05/2024 Has HLD, on liquid statin Denies CAD. Had a stroke 4 years ago. Has been wheel chair bound since stroke, speech impaired, right arm lost mobility. Gets PT at home. OT at home. Denies alcohol/tobacco use Weight: Has been able to increase his weight since leaving long term. Daughter states he is always hungry and eats more than he should. No diabetes education in the past. 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-dominant side Afib Hypertension Metabolic encephalopathy Diabetes type 2, controlled Insomnia Supraventricular tachycardia Cerebral infarction due to unspecified occlusion or stenosis of other cerebral artery Encounter for nasogastric (NG) tube placement Stroke Surgical History Gastrostomy status Family History (Reviewed 10/20/25 @ :24 by EMERSON Mata) Sister FH: mental illness Other No pertinent family history Social History (Reviewed 10/20/25 @ 13: by EMERSON Mata) Household Members: Spouse and Children Housing: House 75 years or older and lives alone: No Alcohol intake: never Patient Tobacco Use Status: Never used Tobacco e-Cigarette/Vaping Use: Never Used Second Hand Smoke Exposure: No Advance Directives Date on File: 05/20/24 service: No Current occupational status: disabled Current occupational exposures/hazards: No Cognitive needs: Yes Hearing needs: No Vision needs: No Physical Exam Vital Signs: Last Vital Signs Pulse 60 10/20/25 13:12 BP 102/64 10/20/25 13:12 Pulse Ox 97 10/20/25 13:12 Oxygen Delivery Method Room Air 10/20/25 13:12 HEENT Ears: hearing grossly normal bilaterally Resp Auscultation: clear to auscultation bilaterally Cardio Rate: regular rate Rhythm: regular rhythm Heart sounds: S1 normal heart sound present and S2 normal heart sound present Skin General skin exam: no rashes or lesions noted Results Reviewed Results Reviewed: Laboratory Last Values Glucose (Clinic) 255 mg/dL (60-115) H 10/20/25 13:21 Assessment & Plan Assessment & Plan (1) Type 2 diabetes mellitus with vascular disease: Code(s): E11.59 - Type 2 diabetes mellitus with other circulatory complications Category: Medical Plan: will try trulicity. We discussed risks and benefits and adverse effects of this medication including nausea, vomiting, increased risk of pancreatitis, constipation etc.. They will monitor for symptoms and let me know. She is hoping it helps curb somewhat of his appetite. continue insulin dosing cpeptide reordered antibody testing was neg We did review the CGM but she feels that is inaccurate she does not think his sugars are as high as it reports but he also does not allow her to check his blood sugars often. reviewed rule of 15s. We will do a short term follow up in a few months. Sooner if needed. Patient understands and agrees with this plan. Orders: Orders C Peptide Today E11.59 - Type 2 diabetes mellitus with other circulatory complications Medications: New dulaglutide (Trulicity) 0.75 mg (0.5 mL) subcut QWEEK 2 mL 3RF Coding Level of Care Code Est Pt Level 4 (93565) Add On Problem Visit Only Diagnoses Type 2 diabetes mellitus with vascular disease E11.59
[2025-10-20 13:25] LABS: Glucose, Whole Blood 255 mg/dL (60-115)
== END 2025-10-20 13:56 | disposition home or self-care (01) ==
LOC: HO.ENCR 13:11
PROVIDERS: PCP Physician Assistant Medical; Visit Provider Physician Assistant
DX: E11.59 Type 2 diabetes mellitus with other circulatory complications (principal)

== ENCOUNTER → 2025-10-20 13:10 | Outpatient (BNVA) | payer MEDICARE, MEDICAID, SELFPAY | PROVIDERS: PCP Physician Assistant Medical; Visit Provider Physician Assistant | DX: E11.59 Type 2 diabetes mellitus with other circulatory complications (principal); Z79.85 Long-term (current) use of injectable non-insulin antidiabetic drugs | CPT/HCPCS: 82947; 99212 ==